=== PATIENT | female | born 1950 | race Caucasian/White ===

== ENCOUNTER → 2018-05-21 08:14 | Outpatient (CLI) | payer MEDICARE, OTHER, SELFPAY ==
[2018-05-21 06:54] VITALS: BMI 28.3
--- OUTSIDE RECORDS SUMMARY | 2018-08-22 08:55 | XMS RPT_ITS ---
:1950 Author Organization OHIP Care Team Providers Name Role Phone DAINA GEIGER Attending DAINA Dougherty Referring Unavailable DAINA GEIGER Referring Unavailable DAINA GEIGER Attending Unavailable DAINA GEIGER Referring Unavailable DAINA GEIGER Referring Unavailable DAINA GEIGER Attending Unavailable DAINA GEIGER Referring Unavailable ANU SHANE (PT) Attending Unavailable DAINA GEIGER Referring Unavailable ANU SHANE (PT) Attending Unavailable DAINA GEIGER Referring Unavailable ANU SHANE (PT) Attending Unavailable DAINA GEIGER Referring Unavailable ANU SHANE (PT) Attending Unavailable DAINA GEIGER Referring Unavailable DAINA GEIGER Attending Unavailable DAINA GEIGER Referring Unavailable DAIAN GEIGER Referring Unavailable JAMES WONG (COMMERCIAL DRIVER) Attending Unavailable Rg Llanes Attending Unavailable Toya Zuleta Referring Unavailable Rg Llanes Attending Unavailable Rg Llanes Referring Unavailable Toya Zuleta Primary Care Unavailable Rg Llanes Attending Unavailable Toya Zuleta Referring Unavailable Toya Zuleta Primary Care Unavailable Gisella Mcfarlane Attending Unavailable Toya Zuleta Referring Unavailable PROBLEMS PROBLEMS DATE TYPE CONDITION / CODE ATTENDING STATUS SOURCE 05/21/2018 Unknown J02.9 - Acute Rg Llanes Active [facility] pharyngitis, Community unspecified / Hospital J02.9(ICD-10) Repository 05/02/2018 Active Encounter for NA Active [facility] screening [place] mammogram for Repository malignant neoplasm of breast / Z12.31(ICD-10) 01/24/2018 Active Unknown / [place], Active [facility] UNK(Unknown) DAINA D [place] Repository 04/17/2017 Active Hyperlipidemia, NA Active [facility] unspecified / [place] E78.5(ICD-10) Repository 01/15/2018 Active Other emt intermediate NA Active [facility] (current) drug [place] therapy / Repository Z79.899(ICD-10) 10/30/2017 Active Encounter for NA Active [facility] screening for [place] malignant Repository neoplasm of colon / Z12.11(ICD-10) PROCEDURES PROCEDURES No Procedure Records FoundRESULTS RESULTS CNOV Observed: 06/17/2018 Status: COMPLETED Source: SPRAY 10:00 AM [facility] REPOSITORY Office Visit (FAMPWS) PAM JERRY ([id number]) 1950 F Date Time Provider Department 06/17/18 10:00 AM JAMES WONG (JASON) FAMPWS During your visit today, we recorded the following information about you: Temperature Pulse Respiration Blood pressure 98.6 degrees 78/minute 16/minute 130/72 Weight 94.2 kg James Wong APRN.CNP 06/17/2018 10:43 AM Signed 06/17/2018 Patient presents with: Wheezing: no cold , just wheezing last few months, states worse when lying down and and worse on exhal SUBJECTIVE: This is a 68 year old that is here today for Above Complaints. Noticed about 2 months ago started wheezing usually on exhalation. Worse when lays down. Patient reports it is wheezing that is coming from her nose area. Has not tried any OTC products. Denies fevers, chills, ear pain, sinus pain, headaches, sore throat, SOB, dyspnea, coughing, chest wheezing, chest pain, or palpitations. Positive for nasal dryness, stuffiness, and nose bleed this Am that stopped easily. 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 DULoxetine (CYMBALTA) 60 mg capsule TAKE ONE CAPSULE BY MOUTH EVERY DAY atorvastatin (LIPITOR) 40 mg tablet TAKE 1 TABLET BY MOUTH ONCE DAILY. Hydrochlorothiazide 12.5 mg capsule Take 1 capsule by mouth once daily. nicotine (NICODERM) 14 mg/24 hr Apply 1 Patch as directed every 24 hours. unsure of dose, #2 No current facility-administered medications for this visit. Medications and allergies reviewed by this provider. SOCIAL HISTORY Social History Marital status: Spouse name: Montrell Years of education: Number of children: 1 Social History Main Topics Smoking status: Former Smoker Packs/day: 0.25 Years: 15.00 Types: Cigarettes Quit date: 07/15/1993 Smokeless tobacco: Former User Quit date: 2017 Alcohol use: Yes 1.5 oz/week Cans of Beer (12oz): 1 per week Drug use: No REVIEW OF SYSTEMS All other reviewed and negative other than HPI. OBJECTIVE: BP 130/72 (BP Site: Left Arm, BP Position: Sitting, BP Cuff Size: Large Adult) Pulse 78 Temp 37 ?C (98.6 ?F) Resp 16 Wt 94.2 kg (207 lb 9.6 oz) SpO2 95% BMI 35.63 kg/m? . Vital signs reviewed by this provider. APPEARANCE Well appearing, alert, in no acute distress, well- hydrated, well nourished. and Overweight EARS External ears normal, canals clear NOSE/SINUS negative findings: septum midline with no perforation or bleeding, positive findings: mucosa erythematous and swollen, clear rhinorrhea THROAT normal, no erythema NECK Supple, no adenopathy; thyroid symmetric, normal size, HEART RRR with normal S1 and S2, no murmurs, no gallops, no JVD appreciated LUNG clear to auscultation. No wheezes, rhonchi, or rales ASSESSMENT/PLAN: 1. Nasal congestion - ICD9: 478.19, ICD10: R09.81 - possibly related to nasal mucosal swelling - will trial steroid nasal spray- instructed to rinse mouth after usage - also to use saline nasal spray to keep nares moist - add humidification to house - FLUTICASONE 50 MCG/ACTUATION NASAL SPRAY,SUSPENSION - follow-up with PCP as scheduled James ChapalogIVANIA smith.COMMERCIAL DRIVER Prescription instructions reviewed with patient as applicable. Patient advised if symptoms do not improve or if symptoms worsen sooner, to contact their primary care physician. Potential red flag symptoms discussed with the patient. Reviewed appropriate action plan to take if red flag symptoms occur. Patient agreeable to treatment plan. James Wong APRN.CNP 06/17/2018 10:19 AM Signed Saline nasal spray as needed cool mist humidifier Referring Provider: SELF [200] Allergies As of Date: 06/17/2018 Noted Allergy Reaction CATS 03/20/2005 5 - Intolerance Comments: ITCHY WATERY EYES AND SUCH NAPROSYN (NAPROXEN) 03/20/2005 7 - Swelling TRAMADOL 08/22/2009 8 - GI Upset VICODIN (HYDROCODONE-ACETAMINOPHE*03/28/2005 8 - GI Upset Date Reviewed: 06/17/2018 Reviewed by: Hailey Da Silva (Xena) XENA Jon - Fully Assessed Reason for Visit: Wheezing [181] Cmt: no cold , just wheezing last few months, states worse when lying down and and worse on exhal Primary Visit Diagnosis:Nasal congestion [R09.81] Order(s):fluticasone (FLONASE) 50 mcg/actuation nasal sprayUse 2 Sprays in each nostril once daily. Rinse mouth after use.Disp: 1 BottleRfl: 11 Prescriptions as of 06/17/2018 Sig: LORAZEPAM 0.5 MG TABLET Take one tablet three time da* DULOXETINE 60 MG CAPSULE,SUSIE* TAKE ONE CAPSULE BY MOUTH SOHAIL* ATORVASTATIN 40 MG TABLET TAKE 1 TABLET BY MOUTH ONCE D* HYDROCHLOROTHIAZIDE 12.5 MG C* Take 1 capsule by mouth once * NICOTINE 14 MG/24 HR DAILY TR* Apply 1 Patch as directed sohail* FLUTICASONE 50 MCG/ACTUATION * Use 2 Sprays in each nostril * Problem List As Of Date 06/17/2018 Noted Resolved CHOLECYSTITIS SEE ALSO GALLBLADDER CHRONIC [K*INVALID FOR* Swelling, mass, or lump in chest [R22.2] INVALID FOR*04/17/2017 Unspecified Myalgia and Myositis [NIQ7175] S/P splenectomy [Z90.81] INVALID FOR* Fibromyalgia [M79.7] INVALID FOR* Hyperlipidemia [E78.5] INVALID FOR* Anxiety [F41.9] INVALID FOR* Cervical pain [M54.2] INVALID FOR* Other instructions from your clinician: Saline nasal spray as needed cool mist humidifier Prescriptions ordered this encounter Disp Refills Start End FLUTICASONE 50 MCG/ACTUATION NASAL S* 1 Murali* 11 06/17/2018 Route: EACH NOSTRIL Sig: Use 2 Sprays in each nostril once daily. Rinse mouth after use. Follow-up and Disposition History Recorded Encounter Status:Closed by PODLOGARJAMES CNP on 06/17/18 PROGRESS Observed: 06/17/2018 Status: COMPLETED Source: SPRAY 9:59 AM [facility] REPOSITORY O ID: [id number] Author: James Pro) Podlogar Service: (none) Author Type: Nurse Practitioner Type: Progress Notes Filed: 06/17/2018 10:43 AM Note Text: 06/17/2018 Patient presents with: Wheezing: no cold , just wheezing last few months, states worse when lying down and and worse on exhal SUBJECTIVE: This is a 68 year old that is here today for Above Complaints. Noticed about 2 months ago started wheezing usually on exhalation. Worse when lays down. Patient reports it is wheezing that is coming from her nose area. Has not tried any OTC products. Denies fevers, chills, ear pain, sinus pain, headaches, sore throat, SOB, dyspnea, coughing, chest wheezing, chest pain, or palpitations. Positive for nasal dryness, stuffiness, and nose bleed this Am that stopped easily. 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 DULoxetine (CYMBALTA) 60 mg capsule TAKE ONE CAPSULE BY MOUTH EVERY DAY atorvastatin (LIPITOR) 40 mg tablet TAKE 1 TABLET BY MOUTH ONCE DAILY. Hydrochlorothiazide 12.5 mg capsule Take 1 capsule by mouth once daily. nicotine (NICODERM) 14 mg/24 hr Apply 1 Patch as directed every 24 hours. unsure of dose, #2 No current facility-administered medications for this visit. Medications and allergies reviewed by this provider. SOCIAL HISTORY Social History Marital status: Spouse name: Montrell Years of education: Number of children: 1 Social History Main Topics Smoking status: Former Smoker Packs/day: 0.25 Years: 15.00 Types: Cigarettes Quit date: 07/15/1993 Smokeless tobacco: Former User Quit date: 2017 Alcohol use: Yes 1.5 oz/week Cans of Beer (12oz): 1 per week Drug use: No REVIEW OF SYSTEMS All other reviewed and negative other than HPI. OBJECTIVE: BP 130/72 (BP Site: Left Arm, BP Position: Sitting, BP Cuff Size: Large Adult) Pulse 78 Temp 37 ?C (98.6 ?F) Resp 16 Wt 94.2 kg (207 lb 9.6 oz) SpO2 95% BMI 35.63 kg/m? . Vital signs reviewed by this provider. APPEARANCE Well appearing, alert, in no acute distress, well-hydrated, well nourished. and Overweight EARS External ears normal, canals clear NOSE/SINUS negative findings: septum midline with no perforation or bleeding, positive findings: mucosa erythematous and swollen, clear rhinorrhea THROAT normal, no erythema NECK Supple, no adenopathy; thyroid symmetric, normal size, HEART RRR with normal S1 and S2, no murmurs, no gallops, no JVD appreciated LUNG clear to auscultation. No wheezes, rhonchi, or rales ASSESSMENT/PLAN: 1. Nasal congestion - ICD9: 478.19, ICD10: R09.81 - possibly related to nasal mucosal swelling - will trial steroid nasal spray- instructed to rinse mouth after usage - also to use saline nasal spray to keep nares moist - add humidification to house - FLUTICASONE 50 MCG/ACTUATION NASAL SPRAY,SUSPENSION - follow-up with PCP as scheduled James Wong, IVANIA.COMMERCIAL DRIVER Prescription instructions reviewed with patient as applicable. Patient advised if symptoms do not improve or if symptoms worsen sooner, to contact their primary care physician. Potential red flag symptoms discussed with the patient. Reviewed appropriate action plan to take if red flag symptoms occur. Patient agreeable to treatment plan. Observed: 05/21/2018 Status: F Source: MARILYN CULTURE, R/O STREP A 9:07 AM [facility] REPOSITORY SHELLI Culture No Streptococcus group A isolated. * This cultures intended use is to screen for Beta Streptococcus A only. All other pathogens and potential pathogens will not be screened for or reported. If a complete workup of all potential pathogens is indicated an order for a routine throat culture is required. Performed By: #### M100.010 #### [facility] [address] [place], [place], [address] URGENT CARE VISIT Observed: 05/21/2018 Status: F Source: MARILYN REPORT 7:11 AM [facility] REPOSITORY [facility] [address] [place] [address] [address] [place] [address] OFFICE VISIT Date of Service: 05/21/18 MR#: [id number] Acct: [id number] Name: PAM JERRY Rep #: [id number] : 1950 Provider: Rg STONE Age/Sex: 68/F Location: [facility] Status: Signed Intake Vital Signs05/21/18 Height 5 ft 4 in Intake Visit Reasons: sore throat, ear aches Chief Complaint: Sore throat, earache Permastone Mechanic Required: No Accompanied by: Self Is patient in pain?: No Allergies No Known Allergies Allergy (Unverified 05/21/18 06:55) Medications cyclobenzaprine 5 mg tablet 5 mg PO TID 11/25/17 [History Confirmed 12/01/17] duloxetine 20 mg capsule,delayed release 20 mg PO BID 11/25/17 [History Confirmed 12/01/17] lorazepam 0.5 mg tablet PO 30 Days #90 11/25/17 [History Confirmed 12/01/17] prednisone 50 mg tablet 50 mg PO QDAY #5 tab 11/25/17 [Rx Confirmed 12/01/17] [facility] Medical History History of hysterectomy (Acute) Surgical History History of appendectomy (Acute) History of cholecystectomy (Acute) removal of spleen (Acute) Social History Smoking Status: Never smoker alcohol intake: never HPI HPI Chief Complaint: Sore throat, earache Details: PAM JERRY, is a 68 F who presents to the office today for initial evaluation approximately 2-1/2 to 3-week history of persistent bilateral earache and sore throat. She has no complaints of congestion, postnasal drip, fever, chills, sweats, rash, cough, chest pain/shortness of breath. She is a non-smoker, noting no other members in household with similar complaints. She has taken no [id number] products to assist with her symptoms. She notes no other associated symptoms and no other alleviating or aggravating factors. ROS Const Constitutional: No other (ROS negative x10 other than as noted above) Exam Const General: cooperative, healthy appearing, no acute distress, comfortable Nutritional Appearance: average body habitus Orientation: alert, awake, oriented x3 HENSC Head: normal to inspection Ears: hearing grossly normal bilaterally, external ears normal, TM's normal bilaterally, EAC's normal Nose: external nose normal, nares normal, septum normal, nasal discharge clear bilaterally (Trace amount) Face and sinus: normal facial exam, sinuses nontender, face symmetric Mouth: tongue normal, lip normal, oral mucosae normal Teeth and gingiva: gingiva normal, dentition normal Throat: uvula midline, posterior oropharynx normal, no postnasal drainage, abnormal tonsil bilaterally erythema (Trace; rapid strep test today negative) Eyes General: appearance normal, both eyes and all related structures Neck Neck: normal visual inspection, full ROM, no lymphadenopathy, no meningeal signs, supple Neck mass: No Thyroid: thyroid normal Lymphatic: no lymphadenopathy noted Chest Chest palpation AND inspection: normal inspection of the chest Resp Effort AND Inspection: normal respiratory effort, able to speak in complete sentences, symmetric chest movement, no cough Auscultation: Bilateral: Clear to Auscultation Cardio Palpation: normal PMI Rate: regular rate Rhythm: regular rhythm Heart Sounds: S1 normal, S2 normal, no gallops, no murmurs, no rubs Pulses: radial pulses present GI Inspection: normal to inspection Skin General: no rashes or lesions noted Neuro General: alert, awake, oriented x3, gait normal Cognition: normal cognition Speech: speech normal Gait: normal gait Motor: muscle tone normal throughout Sensory Exam: no sensory deficits noted Psych Appearance: grossly normal Mental Status: mental status grossly normal Mood: congruent mood Affect: normal affect Speech and Movement: speech and movement normal Attitude: cooperative Thought Process: normal Thought Content: normal Judgment: judgment good Results BMSRAPIDSTRECO Office Rapid Strep A Negative Last Edit by Mary Jane Blood on 05/21/18 06:56 Assessment AND Plan Problems 1. URI (upper respiratory infection) J06.9 2. Pharyngitis J02.9 Plan Patient aware today's rapid strep test was negative therefore culture sent to lab for further evaluation. Clear fluids, rest, Tylenol, saltwater gargles, change toothbrush as instructed today. Follow-up with PCP in 5-7 days should symptoms not improved, sooner should symptoms worsen or any other concerns develop. Patient states acknowledging understanding all the above. This note was generated with Dragon dictation software. It may contain incorrect words, spelling, and punctuation that were not noted in checking the note before signing. Orders Orders: Coding Level of Care Code Off vis,est,level 3 Diagnoses URI (upper respiratory infection) J06.9 Pharyngitis J02.9 05/21/18 0711 <Electronically signed by Rg STONE> Date Rg STONE Cosigner Signature: Date (if applicable) CC: CNCO Observed: 05/02/2018 Status: COMPLETED Source: SPRAY 12:37 PM [facility] REPOSITORY HNO ID: [id number] Author: Mammography Coordinator Service: (none) Author Type: Physician Type: Letter Filed: 05/05/2018 11:33 PM Note Text: May 02, 2018 PID: [id number] [place] [address] Dear Ms. Jerry, We are pleased to inform you that the results of your recent breast imaging exam on 05/02/2018 are normal. Early detection of cancer is very important. We also understand recommendations regarding breast cancer screening are controversial. Please discuss with your primary care provider which strategy is best for you and whether a mammogram is right for you. Your imaging studies and report will be kept on file at [facility] as part of your permanent medical record and are available for your continuing care. Thank you for allowing us to help in meeting your health care needs. Sincerely, Dr. Heck Interpreting Radiologist [facility] (Normal over 40) [facility] SCREENING Observed: 05/02/2018 Status: F Source: SPRAY 10:29 AM [facility] [place] REPOSITORY * * *Final Report* * * DATE OF EXAM: May 02 2018 10:29AM KELLIE 0581 - [facility] SCREENING / PROCEDURE REASON: Encounter for screening mammogram for malignant neoplasm of breast * * * * Physician Interpretation * * * * RESULT: #[id number] - [facility] SCREENING BILATERAL DIGITAL SCREENING MAMMOGRAM WITH CAD: 05/02/2018 HISTORY: Encounter For Screening Mammogram For Malignant Neoplasm Of Breast /priors available for comparison. RESULT: TECHNIQUE: The study was acquired using full field digital technology and interpreted from soft copy. Current study was also evaluated with a Computer Aided Detection (CAD). Comparison is made to exams dated: 02/27/2017 mammogram - [facility] and 09/15/2014 mammogram. There are scattered fibroglandular elements in both breasts. No significant masses, calcifications, or other findings are seen in either breast. There has been no significant interval change. IMPRESSION: There is no mammographic evidence of malignancy. A 1 year screening mammogram is recommended. Swetha malloy/latonia:05/02/2018 12:37:26 Health Information Technician(s): RT Rosie(R)(M), [facility] letter sent: Normal over 40 Mammogram BI-RADS: 1 Negative Multiple national specialty organizations have released breast cancer screening guidelines for women at average risk for developing breast cancer - guidelines that are based on both evidence and opinion, yet differ on when to start and how often to screen for breast cancer. With representation from Breast Imaging, Internal Medicine, Women's Health, Family Medicine, and Medical/Surgical Oncology, the [facility] has carefully reviewed the data and reached the following consensus: 1) All women should engage in shared decision-making with their providers to decide when to start and how often to screen; 2) All women should have the opportunity to start screening mammography at age 40; 3) For women ages 45-55, we recommend annual screening mammograms; 4) For women ages 55 and over, we support both the transition from an annual to a biennial interval if this aligns more with patient's values and preferences, or continuation with annual screening; 5) All women should discuss with their providers when to stop screening mammograms. Network Support Engineer: Latonia Transcribe Date/Time: May 02 2018 10:18A Dictated by: SWETHA HECK MD This examination was interpreted and the report reviewed and electronically signed by: SWETHA HECK MD on May 02 2018 12:37PM EST [id number] PROCEDURE Observed: 05/02/2018 Status: COMPLETED Source: SPRAY 10:17 AM [facility] REPOSITORY HNO ID: [id number] Author: Susanne () Austin Pena Service: (none) Author Type: Fmd Teacher Type: Procedures Filed: 05/02/2018 10:30 AM Note Text: Radiology Service Progress Note PATIENT NAME: Pam Jerry DATE OF SERVICE: May 02, 2018 TIME: 10:17 AM PATIENT IDENTITY VERIFICATION COMPLETED USING TWO (2) METHODS: Patient confirmed name verbally and Date of . PATIENT GENDER DATA: Female. status: : No status: NO. PATIENT RELEVANT IMPLANT DATA REVIEWED: Not Applicable RADIOLOGY DEPARTMENT: [facility] DATA: Not applicable SIGNED BY: RT Rosie May 02, 2018 10:17 AM PROGRESS Observed: 05/01/2018 Status: COMPLETED Source: SPRAY 10:46 AM [facility] REPOSITORY HNO ID: [id number] Author: Daina Geiger Service: (none) Author Type: Physician Type: Progress Notes Filed: 05/02/2018 7:18 PM Note Text: Chief Complaint Patient presents with: F/U 3 Month: Fibro, Cervical pain and Anxiety HPI Pam Jerry is a 68 year old female who presents here today for a 3 mo f/u. Here today for a 3 mo f/u. Overall doing well, not really much going on. Doesn't like the winter, previously lived in [place] for 8 years. Smoking - Still not smoking but uses that patches. Fibro - Overall stable but still having daily pain. Worse in the colder months, raining or when damp out. Most of her pain is located in her neck and shoulders. Currently taking Cymbalta 60 mg 1 tab po once daily and does have improvement with pain with using Ativan 0.5 mg 1 tab po TID. Uses heat to help symptoms. Cervical pain - Improved since last OV. Did complete 4 PT sessions with Anu. Had dry needling done during this time which hurt but did get rid of one of the knots. After 4 sessions, she felt temporarily relief the day of PT and then pain would return. Was given home exercises to complete. Anxiety - Stable with current regimen of medication. Currently taking Ativan 0.5 mg 1 tab po TID. Virus - Ongoing for the last 3-5 days with a sore throat, head congestion and feeling blah and body soreness. Edema - Improved with use of HCTZ 12.5 mg once daily to reduce swelling. Good results with use of medication. Past medical history, appointments, medications, allergies reviewed. 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 - Hypercholesterolemia 2014 - Impaired fasting glucose 2014 - Insomnia - Kidney stone - Liver function test abnormality - Multiple nodules of lung All less than 5 mm in size, diagnosed November 2015, suggested 3 month follow-up imaging - Myalgia and myositis, unspecified - Osteopenia - Primary fibromyalgia syndrome - Tobacco dependence - Tubal without intrauterine Previous Surgical History PAST SURGICAL HISTORY Procedure Laterality Date - APPENDECTOMY 1961 - LAP CHOLECYSTECT/CHOLANGIOGRAPHY 04/11/05 - LIGATE FALLOPIAN TUBE TUBAL - REMOVAL SPLEEN, TOTAL 1961 - TOTAL ABDOM HYSTERECTOMY 1998 Family History FAMILY HISTORY Problem Relation Age of Onset - Cancer Mother LUNG - Heart Mother - Heart Maternal Grandfather Patient Allergies ALLERGIES Allergen Reactions - Cats Intolerance ITCHY WATERY EYES AND SUCH - Naprosyn [Naproxen] Swelling - Tramadol GI Upset - Vicodin [Hydrocodon* GI Upset Current Medications Current Outpatient Prescriptions on File Prior to Visit: DULoxetine (CYMBALTA) 60 mg capsule TAKE ONE CAPSULE BY MOUTH EVERY DAY atorvastatin (LIPITOR) 40 mg tablet TAKE 1 TABLET BY MOUTH ONCE DAILY. LORazepam (ATIVAN) 0.5 mg tab Take one tablet three time daily as needed. Hydrochlorothiazide 12.5 mg capsule Take 1 capsule by mouth once daily. nicotine (NICODERM) 14 mg/24 hr Apply 1 Patch as directed every 24 hours. unsure of dose, #2 No current facility-administered medications on file prior to visit. Social History Social History Marital status: Spouse name: Montrell Years of education: Number of children: 1 Social History Main Topics Smoking status: Former Smoker Packs/day: 0.25 Years: 15.00 Types: Cigarettes Quit date: 07/15/1993 Smokeless tobacco: Former User Quit date: 2017 Alcohol use: Yes 1.5 oz/week Cans of Beer (12oz): 1 per week Drug use: No EXAM: BP 128/86 (BP Site: Left Arm, BP Position: Sitting, BP Cuff Size: Regular Adult) Pulse 80 Resp 16 Wt 91.3 kg (201 lb 3.2 oz) BMI 34.54 kg/m? General Appearance: Well appearing, alert, in no acute distress, well-hydrated, well nourished and Overweight. Oropharynx: Lips, mucosa, and tongue normal, teeth and gums normal, oropharynx normal. Neck: Supple, no adenopathy; thyroid symmetric, normal size, no bruits. Lungs: lungs clear to auscultation. No wheezing, rhonchi, rales. Heart: RRR without murmur, gallop, or rubs. No ectopy. Health Maintenance List HEPATITIS C SCREENING due on 1996 DTAP,TDAP,TD(2 - Tdap) due on 11/01/2012 MAMMOGRAM due on 02/27/2018 PNEUMOVAX AGE 65 AND OVER WITH 5YR LOOKBACK(1) due on 06/14/2018 FECAL OCCULT BLOOD due on 10/30/2018 DIABETES SCREEN due on 01/15/2021 LIPID SCREEN due on 01/15/2023 BONE DENSITY Completed ADULT PREVNAR-13 Completed INFLUENZA Completed Data reviewed No current labs completed ASSESSMENT/PLAN: 1. Anxiety - ICD9: 300.00, ICD10: F41.9 (primary diagnosis) - Continue current medication regimen. - LORAZEPAM 0.5 MG TABLET 2. Fibromyalgia - ICD9: 729.1, ICD10: M79.7 - Continue current medication regimen. 3. Hyperlipidemia, unspecified hyperlipidemia type - ICD9: 272.4, ICD10: E78.5 - good control - Continue current medication. 4. Cervical pain - ICD9: 723.1, ICD10: M54.2 - Stable - Continue current medication regimen. 5. Encounter for screening mammogram for malignant neoplasm of breast - ICD9: V76.12, ICD10: Z12.31 - Setup an appt. 6. Viral URI Symptomatic treatment 3 mo f/u I agree with the Chief Complaint, ROS, and Past Histories independently gathered by the clinical application support developer and the remaining scribed note accurately describes my personal service to the patient. Daina Geiger MD The documentation for this note was completed by Mia Pittman Ma acting as scribe for Daina Geiger MD. May 01, 2018 10:47 AM. CNOV Observed: 05/01/2018 Status: COMPLETED Source: SPRAY 10:40 AM [facility] REPOSITORY Office Visit (FAMPWS) PAM JERRY ([id number]) 1950 F Date Time Provider Department 05/01/18 10:40 AM [facility] During your visit today, we recorded the following information about you: Pulse Respiration Blood pressure Weight 80/minute 16/minute 128/86 91.3 kg Daina Geiger MD 05/02/2018 7:18 PM Signed Chief Complaint Patient presents with: F/U 3 Month: Fibro, Cervical pain and Anxiety HPI Pam Jerry is a 68 year old female who presents here today for a 3 mo f/u. Here today for a 3 mo f/u. Overall doing well, not really much going on. Doesn't like the winter, previously lived in [place] for 8 years. Smoking - Still not smoking but uses that patches. Fibro - Overall stable but still having daily pain. Worse in the colder months, raining or when damp out. Most of her pain is located in her neck and shoulders. Currently taking Cymbalta 60 mg 1 tab po once daily and does have improvement with pain with using Ativan 0.5 mg 1 tab po TID. Uses heat to help symptoms. Cervical pain - Improved since last OV. Did complete 4 PT sessions with Anu. Had dry needling done during this time which hurt but did get rid of one of the knots. After 4 sessions, she felt temporarily relief the day of PT and then pain would return. Was given home exercises to complete. Anxiety - Stable with current regimen of medication. Currently taking Ativan 0.5 mg 1 tab po TID. Virus - Ongoing for the last 3-5 days with a sore throat, head congestion and feeling blah and body soreness. Edema - Improved with use of HCTZ 12.5 mg once daily to reduce swelling. Good results with use of medication. Past medical history, appointments, medications, allergies reviewed. 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 - Hypercholesterolemia 2014 - Impaired fasting glucose 2014 - Insomnia - Kidney stone - Liver function test abnormality - Multiple nodules of lung All less than 5 mm in size, diagnosed November 2015, suggested 3 month follow-up imaging - Myalgia and myositis, unspecified - Osteopenia - Primary fibromyalgia syndrome - Tobacco dependence - Tubal without intrauterine Previous Surgical History PAST SURGICAL HISTORY Procedure Laterality Date - APPENDECTOMY 1961 - LAP CHOLECYSTECT/CHOLANGIOGRAPHY 04/11/05 - LIGATE FALLOPIAN TUBE TUBAL - REMOVAL SPLEEN, TOTAL 1961 - TOTAL ABDOM HYSTERECTOMY 1998 Family History FAMILY HISTORY Problem Relation Age of Onset - Cancer Mother LUNG - Heart Mother - Heart Maternal Grandfather Patient Allergies ALLERGIES Allergen Reactions - Cats Intolerance ITCHY WATERY EYES AND SUCH - Naprosyn [Naproxen] Swelling - Tramadol GI Upset - Vicodin [Hydrocodon* GI Upset Current Medications Current Outpatient Prescriptions on File Prior to Visit: DULoxetine (CYMBALTA) 60 mg capsule TAKE ONE CAPSULE BY MOUTH EVERY DAY atorvastatin (LIPITOR) 40 mg tablet TAKE 1 TABLET BY MOUTH ONCE DAILY. LORazepam (ATIVAN) 0.5 mg tab Take one tablet three time daily as needed. Hydrochlorothiazide 12.5 mg capsule Take 1 capsule by mouth once daily. nicotine (NICODERM) 14 mg/24 hr Apply 1 Patch as directed every 24 hours. unsure of dose, #2 No current facility-administered medications on file prior to visit. Social History Social History Marital status: Spouse name: Montrell Years of education: Number of children: 1 Social History Main Topics Smoking status: Former Smoker Packs/day: 0.25 Years: 15.00 Types: Cigarettes Quit date: 07/15/1993 Smokeless tobacco: Former User Quit date: 2017 Alcohol use: Yes 1.5 oz/week Cans of Beer (12oz): 1 per week Drug use: No EXAM: BP 128/86 (BP Site: Left Arm, BP Position: Sitting, BP Cuff Size: Regular Adult) Pulse 80 Resp 16 Wt 91.3 kg (201 lb 3.2 oz) BMI 34.54 kg/m? General Appearance: Well appearing, alert, in no acute distress, well-hydrated, well nourished and Overweight. Oropharynx: Lips, mucosa, and tongue normal, teeth and gums normal, oropharynx normal. Neck: Supple, no adenopathy; thyroid symmetric, normal size, no bruits. Lungs: lungs clear to auscultation. No wheezing, rhonchi, rales. Heart: RRR without murmur, gallop, or rubs. No ectopy. Health Maintenance List HEPATITIS C SCREENING due on 1996 DTAP,TDAP,TD(2 - Tdap) due on 11/01/2012 MAMMOGRAM due on 02/27/2018 PNEUMOVAX AGE 65 AND OVER WITH 5YR LOOKBACK(1) due on 06/14/2018 FECAL OCCULT BLOOD due on 10/30/2018 DIABETES SCREEN due on 01/15/2021 LIPID SCREEN due on 01/15/2023 BONE DENSITY Completed ADULT PREVNAR-13 Completed INFLUENZA Completed Data reviewed No current labs completed ASSESSMENT/PLAN: 1. Anxiety - ICD9: 300.00, ICD10: F41.9 (primary diagnosis) - Continue current medication regimen. - LORAZEPAM 0.5 MG TABLET 2. Fibromyalgia - ICD9: 729.1, ICD10: M79.7 - Continue current medication regimen. 3. Hyperlipidemia, unspecified hyperlipidemia type - ICD9: 272.4, ICD10: E78.5 - good control - Continue current medication. 4. Cervical pain - ICD9: 723.1, ICD10: M54.2 - Stable - Continue current medication regimen. 5. Encounter for screening mammogram for malignant neoplasm of breast - ICD9: V76.12, ICD10: Z12.31 - Setup an appt. 6. Viral URI Symptomatic treatment 3 mo f/u I agree with the Chief Complaint, ROS, and Past Histories independently gathered by the clinical application support developer and the remaining scribed note accurately describes my personal service to the patient. Daina Geiger MD The documentation for this note was completed by Mia Pittman Ma acting as scribe for Daina Geiger MD. May 01, 2018 10:47 AM. Referring Provider: DAINA GEIGER [[id number]] Allergies As of Date: 05/01/2018 Noted Allergy Reaction CATS 03/20/2005 5 - Intolerance Comments: ITCHY WATERY EYES AND SUCH NAPROSYN (NAPROXEN) 03/20/2005 7 - Swelling TRAMADOL 08/22/2009 8 - GI Upset VICODIN (HYDROCODONE-ACETAMINOPHE*03/28/2005 8 - GI Upset Date Reviewed: 05/01/2018 Reviewed by: Mia Pittman Ma - Fully Assessed Reason for Visit: F/U 3 Month [443] Cmt: Fibro, Cervical pain and Anxiety Primary Visit Diagnosis:Anxiety [F41.9] Other Visit Diagnoses:Fibromyalgia [M79.7] Hyperlipidemia, unspecified hyperlipidemia type [E78.5] Cervical pain [M54.2] Viral URI [J06.9] Encounter for screening mammogram for malignant neoplasm of breast [Z12.31] Order(s):LORazepam (ATIVAN) 0.5 mg tabTake one tablet three time daily as needed.Disp: 90 tabletRfl: 2 [facility] SCREENING [[id number]] Order #: [id number] FUTURE Prescriptions as of 05/01/2018 Sig: LORAZEPAM 0.5 MG TABLET Take one tablet three time da* DULOXETINE 60 MG CAPSULE,SUSIE* TAKE ONE CAPSULE BY MOUTH SOHAIL* ATORVASTATIN 40 MG TABLET TAKE 1 TABLET BY MOUTH ONCE D* HYDROCHLOROTHIAZIDE 12.5 MG C* Take 1 capsule by mouth once * NICOTINE 14 MG/24 HR DAILY TR* Apply 1 Patch as directed sohail* Problem List As Of Date 05/01/2018 Noted Resolved CHOLECYSTITIS SEE ALSO GALLBLADDER CHRONIC [K*INVALID FOR* Swelling, mass, or lump in chest [R22.2] INVALID FOR*04/17/2017 Unspecified Myalgia and Myositis [[id number]] S/P splenectomy [Z90.81] INVALID FOR* Fibromyalgia [M79.7] INVALID FOR* Hyperlipidemia [E78.5] INVALID FOR* Anxiety [F41.9] INVALID FOR* Cervical pain [M54.2] INVALID FOR* Prescriptions ordered this encounter Disp Refills Start End LORAZEPAM 0.5 MG TABLET 90 t* 2 05/01/2018 08/06/2018 Class: Print RX Sig: Take one tablet three time daily as needed. Medications Discontinued During This Encounter LORazepam (ATIVAN) 0.5 mg tab 90 t* 2 01/24/2018 05/01/2018 Class: Print RX Sig: Take one tablet three time daily as needed. Disc: Reason for discontinue is not on file. Disposition: Return in about 3 months (around 07/31/2018). Follow-up and Disposition History Recorded Encounter Status:Closed by DAINA GEIGER MD on 05/02/18 PROGRESS Observed: 03/08/2018 Status: COMPLETED Source: SPRAY 11:24 PM [facility] [place] REPOSITORY O ID: [id number] Author: Anu (Pt) Acosta Service: (none) Author Type: Physical Therapist Type: Progress Notes Filed: 03/09/2018 12:11 AM Note Text: Episode Visit Count: 4 Therapist That Will Oversee The Plan Of Care: Anu Shane Start of Care Date: 02/05/18 Onset Date: 02/06/08 Plan of Care Certification Date: 02/05/18 [facility]ATION [facility]ORTS [facility]ERAPY PHYSICAL THERAPY PROGRESS REPORT PLAN OF CARE UPDATE: Assessment: Pam Jerry exhibits improvements in neck pain, driving tolerance, and overall activity tolerance since beginning therapy. . She continues to be limited with heavy exertion, lifting and physical activities. She is progressing as expected towards her therapy goals as demonstrated by: pain levels and documented subjective information on progress. She will benefit from continued skilled therapy requiring continued manual techniques per patient tolerance and progressive exerices in order to improve remaining functional deficits and return to prior level of function. Functional gains: Improved sleep Increased endurance / activity tolerance Increased independence with HEP Increased ROM Improved affect during session Decreased intensity of pain Decreased frequency of pain Goals for Episode of Care: created on 02/05/18 through 04/07/18 Independent in a Home Exercise Program. Met Patient will decrease pain rating by 2 points to meet minimal clinical important difference for numeric pain rating scale. Met Restore pain free cervical ROM to WNL to allow for improved functional mobility and driving tolerance. Partially met Drive with no aggravation of pain/symptoms. Partially met Sit 30 minutes without pain/symptoms to allow for improved tolerance for sitting ADLs and driving partially met G CODE REPORTING Based on clinical assessment and the score on the AM-PAC Scale Score Assessment Tool, the G code and corresponding severity modifiers are documented below. Evaluation: 02/05/2018 Current Status: Changing AND Maintaining Body Position: G8981 CH 0% impaired Goal Status: Changing AND Maintaining Body Position: G8982 CH 0% impaired Progress Report: 03/05/2018 Current Status: Changing AND Maintaining Body Position: G8981 CH 0% impaired Goal Status: Changing AND Maintaining Body Position: G8982 CH 0% impaired Planned Interventions, Frequency, and Duration: , Patient to be seen for SUBJECTIVE: Pt has seen significant improvement in neck tension and pain since beginning therapy. She notes improved tolerance for driving, ADLs, and all general mobilities. Also a decrease in pain and tightness since trying dry needling last session. Pt would like to try to maintain current gains on her own. She feels she is able to do well with current HEP and using heat to decrease pain.. Pain Score: 1/10 Pain Location: Neck Description: Tightness Frequency: Continuous OBJECTIVE MEASURES WITH LEVEL OF FUNCTION: Cervical Spine AROM Cervical Flexion (degrees)?: 50 Degrees Cervical Extension (degrees)?: 40 Degrees Cervical Side-Bend Right (degrees): 28 Degrees Cervical Side-Bend Left (degrees)?: 29 Degrees Cervical Rotation Right (degrees)?: 60 Degrees Cervical Rotation Left (degrees)?: 65 Thoracic Spine AROM Thoracic Flexion: Normal Thoracic Extension: Minimal limitation Thoracic Sidebend Right: Normal Thoracic Sidebend Left: Normal Thoracic Rotation Right: Normal Thoracic Rotation Left: Normal UE and Cervical Strength Deep Neck Flexor Endurance: 15 sec R UE Strength: 5/5 L UE Strength: 5/5 TREATMENT: Manual Therapy: 1: STM to B upper traps, SCM, suboccipitals, and levator; assessing for tenderness, trigger points, tissue quality, and reproduction of pain/symptoms, then pressure to pt tolerance and until symptoms resolve with each spot 2: 1st rib mobs x10 bilaterally 3: Active cervical extension plus manual overpressure on C7 promoting extension x10- pt shown how to perform for HEP Skilled Intervention: Manual skills to improve joint mobility, ROM, and decrease pain. Utilized anatomy knowledge of the therapist, and assessment of patient's response to intervention. Billing: [facility]: Manual Therapy ([id number]): 1:1 time: 24 minutes (2 units: 23-37 mins) Total time: 24 minutes Anu Shane PT CNTHERAPY Observed: 03/05/2018 Status: COMPLETED Source: SPRAY 1:00 PM [facility] REPOSITORY OT/PT/Speech Visit (PTWS) PAM JERRY ([id number]) 1950 F Date Time Provider Department 03/05/18 1:00 PM ANU SHANE (PT) PTWS Date Time Provider Department Center 03/05/2018 1:00 PM [id number], SEAN (PT)PTWS [facility] Reason for Visit: Physical Therapy [503] Primary Visit Diagnosis:Cervical pain [M54.2] Other Visit Diagnosis:Fibromyalgia [M79.7] Allergies As of Date: 03/05/2018 Noted Allergy Reaction CATS 03/20/2005 5 - Intolerance Comments: ITCHY WATERY EYES AND SUCH NAPROSYN (NAPROXEN) 03/20/2005 7 - Swelling TRAMADOL 08/22/2009 8 - GI Upset VICODIN (HYDROCODONE-ACETAMINOPHE*03/28/2005 8 - GI Upset Date Reviewed: 01/24/2018 Reviewed by: Mia Pittman Ma - Fully Assessed Prescriptions as of 03/05/2018 Sig: LORAZEPAM 0.5 MG TABLET Take one tablet three time da* DULOXETINE 60 MG CAPSULE,SUSIE* Take 1 capsule by mouth once * HYDROCHLOROTHIAZIDE 12.5 MG C* Take 1 capsule by mouth once * ATORVASTATIN 40 MG TABLET Take 1 tablet by mouth once d* NICOTINE 14 MG/24 HR DAILY TR* Apply 1 Patch as directed sohail* Progress Notes: Anu Shane, PT 03/09/2018 12:11 AM Signed Episode Visit Count: 4 Therapist That Will Oversee The Plan Of Care: Anu Shane Start of Care Date: 02/05/18 Onset Date: 02/06/08 Plan of Care Certification Date: 02/05/18 REHABILITATION AND SPORTS THERAPY PHYSICAL THERAPY PROGRESS REPORT PLAN OF CARE UPDATE: Assessment: Pam Jerry exhibits improvements in neck pain, driving tolerance, and overall activity tolerance since beginning therapy. . She continues to be limited with heavy exertion, lifting and physical activities. She is progressing as expected towards her therapy goals as demonstrated by: pain levels and documented subjective information on progress. She will benefit from continued skilled therapy requiring continued manual techniques per patient tolerance and progressive exerices in order to improve remaining functional deficits and return to prior level of function. Functional gains: Improved sleep Increased endurance / activity tolerance Increased independence with HEP Increased ROM Improved affect during session Decreased intensity of pain Decreased frequency of pain Goals for Episode of Care: created on 02/05/18 through 04/07/18 Independent in a Home Exercise Program. Met Patient will decrease pain rating by 2 points to meet minimal clinical important difference for numeric pain rating scale. Met Restore pain free cervical ROM to WNL to allow for improved functional mobility and driving tolerance. Partially met Drive with no aggravation of pain/symptoms. Partially met Sit 30 minutes without pain/symptoms to allow for improved tolerance for sitting ADLs and driving partially met G CODE REPORTING Based on clinical assessment and the score on the AM-PAC Scale Score Assessment Tool, the G code and corresponding severity modifiers are documented below. Evaluation: 02/05/2018 Current Status: Changing AND Maintaining Body Position: G8981 CH 0% impaired Goal Status: Changing AND Maintaining Body Position: G8982 CH 0% impaired Progress Report: 03/05/2018 Current Status: Changing AND Maintaining Body Position: G8981 CH 0% impaired Goal Status: Changing AND Maintaining Body Position: G8982 CH 0% impaired Planned Interventions, Frequency, and Duration: , Patient to be seen for SUBJECTIVE: Pt has seen significant improvement in neck tension and pain since beginning therapy. She notes improved tolerance for driving, ADLs, and all general mobilities. Also a decrease in pain and tightness since trying dry needling last session. Pt would like to try to maintain current gains on her own. She feels she is able to do well with current HEP and using heat to decrease pain.. Pain Score: /10 Pain Location: Neck Description: Tightness Frequency: Continuous OBJECTIVE MEASURES WITH LEVEL OF FUNCTION: Cervical Spine AROM Cervical Flexion (degrees)?: 50 Degrees Cervical Extension (degrees)?: 40 Degrees Cervical Side-Bend Right (degrees): 28 Degrees Cervical Side-Bend Left (degrees)?: 29 Degrees Cervical Rotation Right (degrees)?: 60 Degrees Cervical Rotation Left (degrees)?: 65 Thoracic Spine AROM Thoracic Flexion: Normal Thoracic Extension: Minimal limitation Thoracic Sidebend Right: Normal Thoracic Sidebend Left: Normal Thoracic Rotation Right: Normal Thoracic Rotation Left: Normal UE and Cervical Strength Deep Neck Flexor Endurance: 15 sec R UE Strength: 5/5 L UE Strength: 5/5 TREATMENT: Manual Therapy: 1: STM to B upper traps, SCM, suboccipitals, and levator; assessing for tenderness, trigger points, tissue quality, and reproduction of pain/symptoms, then pressure to pt tolerance and until symptoms resolve with each spot 2: 1st rib mobs x10 bilaterally 3: Active cervical extension plus manual overpressure on C7 promoting extension x10- pt shown how to perform for HEP Skilled Intervention: Manual skills to improve joint mobility, ROM, and decrease pain. Utilized anatomy knowledge of the therapist, and assessment of patient's response to intervention. Billing: [facility]: Manual Therapy ([id number]): 1:1 time: 24 minutes (2 units: 23-37 mins) Total time: 24 minutes Anu Shane PT PROGRESS Observed: 02/28/2018 Status: COMPLETED Source: SPRAY 8:48 AM [facility] REPOSITORY HNO ID: [id number] Author: Anu Shane Service: (none) Author Type: Physical Therapist Type: Progress Notes Filed: 02/28/2018 8:51 AM Note Text: Episode Visit Count: 3 Therapist That Will Oversee The Plan Of Care: Anu Shane Start of Care Date: 02/05/18 Onset Date: 02/06/08 Plan of Care Certification Date: 02/05/18 REHABILITATION AND SPORTS THERAPY PHYSICAL THERAPY TREATMENT NOTE ASSESSMENT: Pam Jerry demonstrated good tolerance to dry needling today, with notable improvement in tissue quality and decreased symptoms. Will assess chcf tolerance for intervention as with fibromyalgia patient may have altered serotonin mechanisms. The patient will continue to benefit from continued skilled physical therapy for manual techniques to decrease pain and return to prior level of function. PLAN FOR NEXT VISIT: assess carry over of needling, progress report due. SUBJECTIVE: Pt notes some relief after last session. She had ~ 4 good days, with 1 or 2 bad ones mixed in. she has some stiffness and pain returning this morning, but she thinks she is getting bad again with the big weather changes. Pain Score: 6/10 Pain Location: Neck Description: Burning;Tightness;Aching Frequency: Continuous OBJECTIVE MEASURES WITH LEVEL OF FUNCTION: Tenderness to below noted structure TREATMENT: Manual Therapy: 1: STM to B upper traps, SCM, suboccipitals, and levator; assessing for tenderness, trigger points, tissue quality, and reproduction of pain/symptoms, then pressure to pt tolerance and until symptoms resolve with each spot Dry Needling: (3) 40 mm needles to B upper traps with pistoning and fanning Skilled Intervention: Manual skills to improve joint mobility, ROM, and decrease pain. Utilized anatomy knowledge of the therapist, and assessment of patient's response to intervention. Billing: [facility]: Manual Therapy ([id number]): 1:1 time: 40 minutes (3 units: 38-52 mins) Total time: 40 minutes Anu Shane PT CNTHERAPY Observed: 02/26/2018 Status: COMPLETED Source: SPRAY 1:00 PM [facility] REPOSITORY OT/PT/Speech Visit (PTWS) PAM JERRY ([id number]) 1950 F Date Time Provider Department 02/26/18 1:00 PM ANU SHANE (PT) PTWS Date Time Provider Department Center 02/26/2018 1:00 PM [id number], SEAN (PT)PTWS [facility] Reason for Visit: Physical Therapy [503] Primary Visit Diagnosis:Cervical pain [M54.2] Other Visit Diagnosis:Fibromyalgia [M79.7] Allergies As of Date: 02/26/2018 Noted Allergy Reaction CATS 03/20/2005 5 - Intolerance Comments: ITCHY WATERY EYES AND SUCH NAPROSYN (NAPROXEN) 03/20/2005 7 - Swelling TRAMADOL 08/22/2009 8 - GI Upset VICODIN (HYDROCODONE-ACETAMINOPHE*03/28/2005 8 - GI Upset Date Reviewed: 01/24/2018 Reviewed by: Mia Pittman Ma - Fully Assessed Prescriptions as of 02/26/2018 Sig: LORAZEPAM 0.5 MG TABLET Take one tablet three time da* DULOXETINE 60 MG CAPSULE,SUSIE* Take 1 capsule by mouth once * HYDROCHLOROTHIAZIDE 12.5 MG C* Take 1 capsule by mouth once * ATORVASTATIN 40 MG TABLET Take 1 tablet by mouth once d* NICOTINE 14 MG/24 HR DAILY TR* Apply 1 Patch as directed sohail* Progress Notes: Anu Shane, PT 02/28/2018 8:51 AM Signed Episode Visit Count: 3 Therapist That Will Oversee The Plan Of Care: Anu Shane Start of Care Date: 02/05/18 Onset Date: 02/06/08 Plan of Care Certification Date: 02/05/18 REHABILITATION AND SPORTS THERAPY PHYSICAL THERAPY TREATMENT NOTE ASSESSMENT: Pam Jerry demonstrated good tolerance to dry needling today, with notable improvement in tissue quality and decreased symptoms. Will assess emt intermediate tolerance for intervention as with fibromyalgia patient may have altered serotonin mechanisms. The patient will continue to benefit from continued skilled physical therapy for manual techniques to decrease pain and return to prior level of function. PLAN FOR NEXT VISIT: assess carry over of needling, progress report due. SUBJECTIVE: Pt notes some relief after last session. She had ~ 4 good days, with 1 or 2 bad ones mixed in. she has some stiffness and pain returning this morning, but she thinks she is getting bad again with the big weather changes. Pain Score: 6/10 Pain Location: Neck Description: Burning;Tightness;Aching Frequency: Continuous OBJECTIVE MEASURES WITH LEVEL OF FUNCTION: Tenderness to below noted structure TREATMENT: Manual Therapy: 1: STM to B upper traps, SCM, suboccipitals, and levator; assessing for tenderness, trigger points, tissue quality, and reproduction of pain/symptoms, then pressure to pt tolerance and until symptoms resolve with each spot Dry Needling: (3) 40 mm needles to B upper traps with pistoning and fanning Skilled Intervention: Manual skills to improve joint mobility, ROM, and decrease pain. Utilized anatomy knowledge of the therapist, and assessment of patient's response to intervention. Billing: [facility]: Manual Therapy ([id number]): 1:1 time: 40 minutes (3 units: 38-52 mins) Total time: 40 minutes Anu Shane PT PROGRESS Observed: 02/21/2018 Status: COMPLETED Source: SPRAY 9:40 PM [facility] REPOSITORY HNO ID: [id number] Author: Anu (Pt) Acosta Service: (none) Author Type: Physical Therapist Type: Progress Notes Filed: 02/21/2018 9:45 PM Note Text: Episode Visit Count: 2 Therapist That Will Oversee The Plan Of Care: Anu Shane Start of Care Date: 02/05/18 Onset Date: 02/06/08 Plan of Care Certification Date: 02/05/18 Patient Identified by Name and Date of : Yes REHABILITATION AND SPORTS THERAPY PHYSICAL THERAPY TREATMENT NOTE ASSESSMENT: Pam Jerry demonstrated good tolerance for manual techniques today with decreased pain and tenderness post session. Patient will be appropriate to add gentle stretching/strengthening next session. The patient will continue to benefit from continued skilled physical therapy for manual techniques prn and progression of exercises. PLAN FOR NEXT VISIT: gentle stretching and strengthening to be added. SUBJECTIVE: Pt with no change since first visit. Pain Score: 8/10 Pain Location: Neck Description: Burning;Stabbing;Aching Frequency: Intermittent OBJECTIVE MEASURES WITH LEVEL OF FUNCTION: Tenderness to below noted muscles TREATMENT: Manual Therapy: 1: STM to B upper traps, SCM, suboccipitals, and levator; assessing for tenderness, trigger points, tissue quality, and reproduction of pain/symptoms, then pressure to pt tolerance and until symptoms resolve with each spot 2: Active cervical extension plus manual overpressure on C7 promoting extension x10- pt shown how to perform for HEP Skilled Intervention: Manual skills to improve joint mobility, ROM, and decrease pain. Utilized anatomy knowledge of the therapist, and assessment of patient's response to intervention. Billing: [facility]: Manual Therapy ([id number]): 1:1 time: 40 minutes (3 units: 38-52 mins) Total time: 40 minutes Anu Shane PT CNTHERAPY Observed: 02/19/2018 Status: COMPLETED Source: SPRAY 1:00 PM [facility] [place] REPOSITORY OT/PT/Speech Visit (PTWS) PAM JERRY ([id number]) 1950 F Date Time Provider Department 02/19/18 1:00 PM ANU SHANE (PT) PTWS Date Time Provider Department Center 02/19/2018 1:00 PM [id number], SEAN (PT)PTWS [facility] Reason for Visit: Physical Therapy [503] Primary Visit Diagnosis:Fibromyalgia [M79.7] Other Visit Diagnosis:Cervical pain [M54.2] Allergies As of Date: 02/19/2018 Noted Allergy Reaction CATS 03/20/2005 5 - Intolerance Comments: ITCHY WATERY EYES AND SUCH NAPROSYN (NAPROXEN) 03/20/2005 7 - Swelling TRAMADOL 08/22/2009 8 - GI Upset VICODIN (HYDROCODONE-ACETAMINOPHE*03/28/2005 8 - GI Upset Date Reviewed: 01/24/2018 Reviewed by: Mia Pittman Ma - Fully Assessed Prescriptions as of 02/19/2018 Sig: LORAZEPAM 0.5 MG TABLET Take one tablet three time da* DULOXETINE 60 MG CAPSULE,SUSIE* Take 1 capsule by mouth once * HYDROCHLOROTHIAZIDE 12.5 MG C* Take 1 capsule by mouth once * ATORVASTATIN 40 MG TABLET Take 1 tablet by mouth once d* NICOTINE 14 MG/24 HR DAILY TR* Apply 1 Patch as directed sohail* Progress Notes: Anu Shane PT 02/21/2018 9:45 PM Signed Episode Visit Count: 2 Therapist That Will Oversee The Plan Of Care: Anu Shane Start of Care Date: 02/05/18 Onset Date: 02/06/08 Plan of Care Certification Date: 02/05/18 Patient Identified by Name and Date of : Yes REHABILITATION AND SPORTS THERAPY PHYSICAL THERAPY TREATMENT NOTE ASSESSMENT: Pam Jerry demonstrated good tolerance for manual techniques today with decreased pain and tenderness post session. Patient will be appropriate to add gentle stretching/strengthening next session. The patient will continue to benefit from continued skilled physical therapy for manual techniques prn and progression of exercises. PLAN FOR NEXT VISIT: gentle stretching and strengthening to be added. SUBJECTIVE: Pt with no change since first visit. Pain Score: 8/10 Pain Location: Neck Description: Burning;Stabbing;Aching Frequency: Intermittent OBJECTIVE MEASURES WITH LEVEL OF FUNCTION: Tenderness to below noted muscles TREATMENT: Manual Therapy: 1: STM to B upper traps, SCM, suboccipitals, and levator; assessing for tenderness, trigger points, tissue quality, and reproduction of pain/symptoms, then pressure to pt tolerance and until symptoms resolve with each spot 2: Active cervical extension plus manual overpressure on C7 promoting extension x10- pt shown how to perform for HEP Skilled Intervention: Manual skills to improve joint mobility, ROM, and decrease pain. Utilized anatomy knowledge of the therapist, and assessment of patient's response to intervention. Billing: [facility]: Manual Therapy ([id number]): 1:1 time: 40 minutes (3 units: 38-52 mins) Total time: 40 minutes Anu Shane PT PROGRESS Observed: 02/05/2018 Status: COMPLETED Source: SPRAY 1:46 PM [facility] [place] REPOSITORY HNO ID: [id number] Author: Anu Shane Service: (none) Author Type: Physical Therapist Type: Progress Notes Filed: 02/05/2018 8:34 PM Note Text: Episode Visit Count: 1 Therapist That Will Oversee The Plan Of Care: Anu Shane Start of Care Date: 02/05/18 Onset Date: 02/06/08 Plan of Care Certification Date: 02/05/18 Patient Identified by Name and Date of : Yes REHABILITATION AND SPORTS THERAPY PHYSICAL THERAPY EVALUATION PLAN OF CARE: Assessment: Pam Jerry presents with the chief complaint of chronic neck pain. She presents with impairments of limited cervical range of motion, poor posture, decreased scapular stabilization and thoracic extensor strength, fibromyalgia, and decreased tolerance for driving. She may benefit from skilled therapy services to improve the above noted deficits to decrease pain and improve quality of life. Prognosis: Fair Fair due to: clinical presentation;chronic nature of impairments;limited tolerance to activity Goals for Episode of Care: created on 02/05/18 through 04/07/18 Independent in a Home Exercise Program. Patient will decrease pain rating by 2 points to meet minimal clinical important difference for numeric pain rating scale. Restore pain free cervical ROM to WNL to allow for improved functional mobility and driving tolerance. Drive with no aggravation of pain/symptoms. Sit 30 minutes without pain/symptoms to allow for improved tolerance for sitting ADLs and driving G CODE REPORTING Based on clinical assessment and the score on the AM-PAC Scale Score Assessment Tool, the G code and corresponding severity modifiers are documented below. Evaluation: 02/05/2018 Current Status: Changing AND Maintaining Body Position: G8981 CH 0% impaired Goal Status: Changing AND Maintaining Body Position: G8982 CH 0% impaired Planned Interventions, Frequency, and Duration: Current Frequency: 1x/week Duration: 4 weeks Total Number of Visits Planned: 4 Planned Treatment Interventions: Therapeutic exercise;Neuromuscular re-education;Manual therapy;Self-chcf management;Patient/Family/Caregiver Education PLAN FOR NEXT VISIT: continue manual techniques, strengthen upper back Patient demonstrates good understanding of plan of care and treatment. The above goals and plan of care were discussed and agreed upon by patient/family. SUBJECTIVE: Pam Jerry is a 68 year old female seen today for neck pain for a decade so. Pt has pain at the base of her neck and that spreads out into the shoulders. Driving seems to be her big precipitating factor. She drives with arms on either side of the steering wheel 3 and 9. Pt can apply heat or wrap a scarf around her neck and this will help. Burning, stabbing, tenderness and tightness in the area. Pain Score: 8/10 (currently 1/10) Pain Location: Neck Description: Burning;Stabbing;Aching Frequency: Intermittent OBJECTIVE MEASURES WITH LEVEL OF FUNCTION: Cervical Spine AROM Cervical AROM determined by: Measurement Cervical Flexion (degrees)?: 45 Degrees Cervical Extension (degrees)?: 26 Degrees Cervical Side-Bend Right (degrees): 20 Degrees Cervical Side-Bend Left (degrees)?: 20 Degrees Cervical Rotation Right (degrees)?: 45 Degrees Cervical Rotation Left (degrees)?: 50 Thoracic Spine AROM Thoracic Flexion: Normal Thoracic Extension: Major limitation Thoracic Sidebend Right: Normal Thoracic Sidebend Left: Normal Thoracic Rotation Right: Normal Thoracic Rotation Left: Normal UE and Cervical Strength Deep Neck Flexor Endurance: 5 sec R UE Strength: 5/5 L UE Strength: 5/5 Special Tests - Cervical Cervical Special Tests: 1st Rib Mobility (All negative) 1st Rib Mobility: hypomobile Education: TREATMENT: Evaluation Manual Therapy: 1: 1st rib mobs x10 bilaterally 2: STM to B upper traps and levator 3: Active cervical extension plus manual overpressure on C7 promoting extension x10- pt shown how to perform for HEP Skilled Intervention: Manual skills to improve joint mobility, ROM, and decrease pain. Utilized anatomy knowledge of the therapist, and assessment of patient's response to intervention. Billing: [facility]: Evaluation - Low Complexity ([id number]) Manual Therapy ([id number]): 1:1 time: 20 minutes (1 unit: 8-22 mins) Total time: 48 minutes Anu Shane PT CNTHERAPY Observed: 02/05/2018 Status: COMPLETED Source: SPRAY 11:15 AM [facility] REPOSITORY OT/PT/Speech Visit (PTWS) PAM JERRY ([id number]) 1950 F Date Time Provider Department 02/05/18 11:15 AM ANU SHANE (PT) PTWS Date Time Provider Department Center 02/05/2018 11:15 AM [id number], SEAN (PT)PTWS [facility] Reason for Visit: PT Eval [747] Physical Therapy [503] Primary Visit Diagnosis:Fibromyalgia [M79.7] Other Visit Diagnosis:Cervical pain [M54.2] Allergies As of Date: 02/05/2018 Noted Allergy Reaction CATS 03/20/2005 5 - Intolerance Comments: ITCHY WATERY EYES AND SUCH NAPROSYN (NAPROXEN) 03/20/2005 7 - Swelling TRAMADOL 08/22/2009 8 - GI Upset VICODIN (HYDROCODONE-ACETAMINOPHE*03/28/2005 8 - GI Upset Date Reviewed: 01/24/2018 Reviewed by: Mia Pittman Ma - Fully Assessed Prescriptions as of 02/05/2018 Sig: LORAZEPAM 0.5 MG TABLET Take one tablet three time da* DULOXETINE 60 MG CAPSULE,SUSIE* Take 1 capsule by mouth once * HYDROCHLOROTHIAZIDE 12.5 MG C* Take 1 capsule by mouth once * ATORVASTATIN 40 MG TABLET Take 1 tablet by mouth once d* NICOTINE 14 MG/24 HR DAILY TR* Apply 1 Patch as directed sohail* Progress Notes: Anu Shane, PT 02/05/2018 8:34 PM Signed Episode Visit Count: 1 Therapist That Will Oversee The Plan Of Care: Anu Shane Start of Care Date: 02/05/18 Onset Date: 02/06/08 Plan of Care Certification Date: 02/05/18 Patient Identified by Name and Date of : Yes REHABILITATION AND SPORTS THERAPY PHYSICAL THERAPY EVALUATION PLAN OF CARE: Assessment: Pam Jerry presents with the chief complaint of chronic neck pain. She presents with impairments of limited cervical range of motion, poor posture, decreased scapular stabilization and thoracic extensor strength, fibromyalgia, and decreased tolerance for driving. She may benefit from skilled therapy services to improve the above noted deficits to decrease pain and improve quality of life. Prognosis: Fair Fair due to: clinical presentation;chronic nature of impairments;limited tolerance to activity Goals for Episode of Care: created on 02/05/18 through 04/07/18 Independent in a Home Exercise Program. Patient will decrease pain rating by 2 points to meet minimal clinical important difference for numeric pain rating scale. Restore pain free cervical ROM to WNL to allow for improved functional mobility and driving tolerance. Drive with no aggravation of pain/symptoms. Sit 30 minutes without pain/symptoms to allow for improved tolerance for sitting ADLs and driving G CODE REPORTING Based on clinical assessment and the score on the AM-PAC Scale Score Assessment Tool, the G code and corresponding severity modifiers are documented below. Evaluation: 02/05/2018 Current Status: Changing AND Maintaining Body Position: G8981 CH 0% impaired Goal Status: Changing AND Maintaining Body Position: G8982 CH 0% impaired Planned Interventions, Frequency, and Duration: Current Frequency: 1x/week Duration: 4 weeks Total Number of Visits Planned: 4 Planned Treatment Interventions: Therapeutic exercise;Neuromuscular re-education;Manual therapy;Self-chcf management;Patient/Family/Caregiver Education PLAN FOR NEXT VISIT: continue manual techniques, strengthen upper back Patient demonstrates good understanding of plan of care and treatment. The above goals and plan of care were discussed and agreed upon by patient/family. SUBJECTIVE: Pam Jerry is a 68 year old female seen today for neck pain for a decade so. Pt has pain at the base of her neck and that spreads out into the shoulders. Driving seems to be her big precipitating factor. She drives with arms on either side of the steering wheel 3 and 9. Pt can apply heat or wrap a scarf around her neck and this will help. Burning, stabbing, tenderness and tightness in the area. Pain Score: 8/10 (currently 1/10) Pain Location: Neck Description: Burning;Stabbing;Aching Frequency: Intermittent OBJECTIVE MEASURES WITH LEVEL OF FUNCTION: Cervical Spine AROM Cervical AROM determined by: Measurement Cervical Flexion (degrees)?: 45 Degrees Cervical Extension (degrees)?: 26 Degrees Cervical Side-Bend Right (degrees): 20 Degrees Cervical Side-Bend Left (degrees)?: 20 Degrees Cervical Rotation Right (degrees)?: 45 Degrees Cervical Rotation Left (degrees)?: 50 Thoracic Spine AROM Thoracic Flexion: Normal Thoracic Extension: Major limitation Thoracic Sidebend Right: Normal Thoracic Sidebend Left: Normal Thoracic Rotation Right: Normal Thoracic Rotation Left: Normal UE and Cervical Strength Deep Neck Flexor Endurance: 5 sec R UE Strength: 5/5 L UE Strength: 5/5 Special Tests - Cervical Cervical Special Tests: 1st Rib Mobility (All negative) 1st Rib Mobility: hypomobile Education: TREATMENT: Evaluation Manual Therapy: 1: 1st rib mobs x10 bilaterally 2: STM to B upper traps and levator 3: Active cervical extension plus manual overpressure on C7 promoting extension x10- pt shown how to perform for HEP Skilled Intervention: Manual skills to improve joint mobility, ROM, and decrease pain. Utilized anatomy knowledge of the therapist, and assessment of patient's response to intervention. Billing: [facility]: Evaluation - Low Complexity (18012) Manual Therapy ([id number]): 1:1 time: 20 minutes (1 unit: 8-22 mins) Total time: 48 minutes Anu Shane PT PROGRESS Observed: 01/24/2018 Status: COMPLETED Source: SPRAY 1:26 PM [facility] REPOSITORY HNO ID: [id number] Author: Daina Geiger Service: (none) Author Type: Physician Type: Progress Notes Filed: 01/24/2018 2:47 PM Note Text: Chief Complaint Patient presents with: F/U 3 Month: Anxiety and Fibromyalgia HPI Pam Jerry is a 68 year old female who presents here today for a 3 mo f/u. Pt here today for a 3 mo f/u. She has completed her labs and would like to review them. Lipids - Admits to not having great will power and knows she needs to lose weight. Smoking - Using patch to help some. Fibro - Neck pain increased; would like PT at [facility]. Past medical history, appointments, medications, allergies reviewed. 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 - Hypercholesterolemia 2014 - Impaired fasting glucose 2014 - Insomnia - Kidney stone - Liver function test abnormality - Multiple nodules of lung All less than 5 mm in size, diagnosed November 2015, suggested 3 month follow-up imaging - Myalgia and myositis, unspecified - Osteopenia - Primary fibromyalgia syndrome - Tobacco dependence - Tubal without intrauterine Previous Surgical History PAST SURGICAL HISTORY Procedure Laterality Date - APPENDECTOMY 1961 - LAP CHOLECYSTECT/CHOLANGIOGRAPHY 04/11/05 - LIGATE FALLOPIAN TUBE TUBAL - REMOVAL SPLEEN, TOTAL 1961 - TOTAL ABDOM HYSTERECTOMY 1998 Family History FAMILY HISTORY Problem Relation Age of Onset - Cancer Mother LUNG - Heart Mother - Heart Maternal Grandfather Patient Allergies ALLERGIES Allergen Reactions - Cats Intolerance ITCHY WATERY EYES AND SUCH - Naprosyn [Naproxen] Swelling - Tramadol GI Upset - Vicodin [Hydrocodon* GI Upset Current Medications Current Outpatient Prescriptions on File Prior to Visit: DULoxetine (CYMBALTA) 60 mg capsule Take 1 capsule by mouth once daily. Hydrochlorothiazide 12.5 mg capsule Take 1 capsule by mouth once daily. LORazepam (ATIVAN) 0.5 mg tab Take one tablet three time daily as needed. atorvastatin (LIPITOR) 40 mg tablet Take 1 tablet by mouth once daily. nicotine (NICODERM) 14 mg/24 hr Apply 1 Patch as directed every 24 hours. unsure of dose, #2 No current facility-administered medications on file prior to visit. Social History Social History Marital status: Spouse name: Montrell Years of education: Number of children: 1 Social History Main Topics Smoking status: Former Smoker Packs/day: 0.25 Years: 15.00 Types: Cigarettes Quit date: 07/15/1993 Smokeless tobacco: Former User Quit date: 2017 Alcohol use: Yes 1.5 oz/week Cans of Beer (12oz): 1 per week Drug use: No EXAM: BP 130/86 (BP Site: Left Arm, BP Position: Sitting, BP Cuff Size: Regular Adult) Pulse 68 Resp 16 Wt 90.4 kg (199 lb 6.4 oz) BMI 34.23 kg/m? General Appearance: Well appearing, alert, in no acute distress, well-hydrated, well nourished.. Neck: decreased ext; tenderness diffusely across upper back and neck. Lungs: Lungs clear to auscultation. No wheezing, rhonchi, rales. Heart: RRR without murmur, gallop, or rubs. No ectopy. Abdomen: Normal abdominal exam, Abdomen soft, non-tender. Bowel sounds normal. No masses, organomegaly. Health Maintenance List HEPATITIS C SCREENING due on 1996 DTAP,TDAP,TD(2 - Tdap) due on 11/01/2012 INFLUENZA(1) due on 02/01/2018 MAMMOGRAM due on 02/27/2018 PNEUMOVAX AGE 65 AND OVER WITH 5YR LOOKBACK(1) due on 06/14/2018 FECAL OCCULT BLOOD due on 10/30/2018 DIABETES SCREEN due on 01/15/2021 LIPID SCREEN due on 01/15/2023 BONE DENSITY Completed ADULT PREVNAR-13 Completed Data reviewed Appointment on 01/15/2018 Component Date Value - Protein, Total 01/15/2018 7.6 - Albumin 01/15/2018 4.4 - Calcium 01/15/2018 9.7 - Bilirubin, Total 01/15/2018 0.2 - Alkaline Phosphatase 01/15/2018 101 - AST 01/15/2018 36* - Glucose 01/15/2018 96 - BUN 01/15/2018 15 - Creatinine 01/15/2018 0.71 - Sodium 01/15/2018 140 - Potassium 01/15/2018 4.2 - Chloride 01/15/2018 102 - CO2 01/15/2018 23 - Anion Gap 01/15/2018 15 - ALT 01/15/2018 30 - eGFR- 01/15/2018 >60 - eGFR-All Other Races 01/15/2018 >60 - Cholesterol, Total 01/15/2018 159 - Triglyceride 01/15/2018 54 - HDL Cholesterol 01/15/2018 64 - LDL Cholesterol 01/15/2018 84 - Non HDL Cholesterol 01/15/2018 95 - Fasting Time 01/15/2018 10 - VLDL Cholesterol 01/15/2018 11 - TC:HDL Ratio 01/15/2018 2.48 - LDL:HDL Ratio 01/15/2018 1.31 - Hemoglobin A1C 01/15/2018 5.7* - Estimated Average Glucose 01/15/2018 117 PDMP website checked and validated. All prescriptions have been APPROPRIATELY filled. No suspicious activity was identified. 01/24/2018 by Daina Geiger MD ASSESSMENT/PLAN: 1. Fibromyalgia - ICD9: 729.1, ICD10: M79.7 (primary diagnosis) - CONSULT TO PHYSICAL THERAPY 2. Anxiety - ICD9: 300.00, ICD10: F41.9 Continue current medications. - LORAZEPAM 0.5 MG TABLET 3. Hyperlipidemia, unspecified hyperlipidemia type - ICD9: 272.4, ICD10: E78.5 - good control - Continue current medication. 4. Cervical pain - ICD9: 723.1, ICD10: M54.2 - CONSULT TO PHYSICAL THERAPY Follow up in 3 months Daina Geiger MD The documentation for this note was completed by Mia Pittman Ma acting as scribe for Daina Geiger MD. January 24, 2018 1:27 PM. CNOV Observed: 01/24/2018 Status: COMPLETED Source: SPRAY 1:20 PM [facility] REPOSITORY Office Visit (FAMPWS) PAM JERRY ([id number]) 1950 F Date Time Provider Department 01/24/18 1:20 PM DAINA GEIGER During your visit today, we recorded the following information about you: Pulse Respiration Blood pressure Weight 68/minute 16/minute 130/86 90.4 kg Daina Geiger MD 01/24/2018 2:47 PM Signed Chief Complaint Patient presents with: F/U 3 Month: Anxiety and Fibromyalgia HPI Pam Jerry is a 68 year old female who presents here today for a 3 mo f/u. Pt here today for a 3 mo f/u. She has completed her labs and would like to review them. Lipids - Admits to not having great will power and knows she needs to lose weight. Smoking - Using patch to help some. Fibro - Neck pain increased; would like PT at [facility]. Past medical history, appointments, medications, allergies reviewed. 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 - Hypercholesterolemia 2014 - Impaired fasting glucose 2014 - Insomnia - Kidney stone - Liver function test abnormality - Multiple nodules of lung All less than 5 mm in size, diagnosed November 2015, suggested 3 month follow-up imaging - Myalgia and myositis, unspecified - Osteopenia - Primary fibromyalgia syndrome - Tobacco dependence - Tubal without intrauterine Previous Surgical History PAST SURGICAL HISTORY Procedure Laterality Date - APPENDECTOMY 1961 - LAP CHOLECYSTECT/CHOLANGIOGRAPHY 04/11/05 - LIGATE FALLOPIAN TUBE TUBAL - REMOVAL SPLEEN, TOTAL 1961 - TOTAL ABDOM HYSTERECTOMY 1998 Family History FAMILY HISTORY Problem Relation Age of Onset - Cancer Mother LUNG - Heart Mother - Heart Maternal Grandfather Patient Allergies ALLERGIES Allergen Reactions - Cats Intolerance ITCHY WATERY EYES AND SUCH - Naprosyn [Naproxen] Swelling - Tramadol GI Upset - Vicodin [Hydrocodon* GI Upset Current Medications Current Outpatient Prescriptions on File Prior to Visit: DULoxetine (CYMBALTA) 60 mg capsule Take 1 capsule by mouth once daily. Hydrochlorothiazide 12.5 mg capsule Take 1 capsule by mouth once daily. LORazepam (ATIVAN) 0.5 mg tab Take one tablet three time daily as needed. atorvastatin (LIPITOR) 40 mg tablet Take 1 tablet by mouth once daily. nicotine (NICODERM) 14 mg/24 hr Apply 1 Patch as directed every 24 hours. unsure of dose, #2 No current facility-administered medications on file prior to visit. Social History Social History Marital status: Spouse name: Montrell Years of education: Number of children: 1 Social History Main Topics Smoking status: Former Smoker Packs/day: 0.25 Years: 15.00 Types: Cigarettes Quit date: 07/15/1993 Smokeless tobacco: Former User Quit date: 2017 Alcohol use: Yes 1.5 oz/week Cans of Beer (12oz): 1 per week Drug use: No EXAM: BP 130/86 (BP Site: Left Arm, BP Position: Sitting, BP Cuff Size: Regular Adult) Pulse 68 Resp 16 Wt 90.4 kg (199 lb 6.4 oz) BMI 34.23 kg/m? General Appearance: Well appearing, alert, in no acute distress, well-hydrated, well nourished.. Neck: decreased ext; tenderness diffusely across upper back and neck. Lungs: Lungs clear to auscultation. No wheezing, rhonchi, rales. Heart: RRR without murmur, gallop, or rubs. No ectopy. Abdomen: Normal abdominal exam, Abdomen soft, non-tender. Bowel sounds normal. No masses, organomegaly. Health Maintenance List HEPATITIS C SCREENING due on 1996 DTAP,TDAP,TD(2 - Tdap) due on 11/01/2012 INFLUENZA(1) due on 02/01/2018 MAMMOGRAM due on 02/27/2018 PNEUMOVAX AGE 65 AND OVER WITH 5YR LOOKBACK(1) due on 06/14/2018 FECAL OCCULT BLOOD due on 10/30/2018 DIABETES SCREEN due on 01/15/2021 LIPID SCREEN due on 01/15/2023 BONE DENSITY Completed ADULT PREVNAR-13 Completed Data reviewed Appointment on 01/15/2018 Component Date Value - Protein, Total 01/15/2018 7.6 - Albumin 01/15/2018 4.4 - Calcium 01/15/2018 9.7 - Bilirubin, Total 01/15/2018 0.2 - Alkaline Phosphatase 01/15/2018 101 - AST 01/15/2018 36* - Glucose 01/15/2018 96 - BUN 01/15/2018 15 - Creatinine 01/15/2018 0.71 - Sodium 01/15/2018 140 - Potassium 01/15/2018 4.2 - Chloride 01/15/2018 102 - CO2 01/15/2018 23 - Anion Gap 01/15/2018 15 - ALT 01/15/2018 30 - eGFR- 01/15/2018 >60 - eGFR-All Other Races 01/15/2018 >60 - Cholesterol, Total 01/15/2018 159 - Triglyceride 01/15/2018 54 - HDL Cholesterol 01/15/2018 64 - LDL Cholesterol 01/15/2018 84 - Non HDL Cholesterol 01/15/2018 95 - Fasting Time 01/15/2018 10 - VLDL Cholesterol 01/15/2018 11 - TC:HDL Ratio 01/15/2018 2.48 - LDL:HDL Ratio 01/15/2018 1.31 - Hemoglobin A1C 01/15/2018 5.7* - Estimated Average Glucose 01/15/2018 117 PDMP website checked and validated. All prescriptions have been APPROPRIATELY filled. No suspicious activity was identified. 01/24/2018 by Daina Geiger MD ASSESSMENT/PLAN: 1. Fibromyalgia - ICD9: 729.1, ICD10: M79.7 (primary diagnosis) - CONSULT TO PHYSICAL THERAPY 2. Anxiety - ICD9: 300.00, ICD10: F41.9 Continue current medications. - LORAZEPAM 0.5 MG TABLET 3. Hyperlipidemia, unspecified hyperlipidemia type - ICD9: 272.4, ICD10: E78.5 - good control - Continue current medication. 4. Cervical pain - ICD9: 723.1, ICD10: M54.2 - CONSULT TO PHYSICAL THERAPY Follow up in 3 months Daina Geiger MD The documentation for this note was completed by Mia Pittman Ma acting as scribe for Daina Geiger MD. January 24, 2018 1:27 PM. Mia Pittman Ma 01/24/2018 3:00 PM Signed PT consult faxed to [employer]/Demographics. Mia Pittman Ma Referring Provider: DAINA GEIGER [[id number]] Allergies As of Date: 01/24/2018 Noted Allergy Reaction CATS 03/20/2005 5 - Intolerance Comments: ITCHY WATERY EYES AND SUCH NAPROSYN (NAPROXEN) 03/20/2005 7 - Swelling TRAMADOL 08/22/2009 8 - GI Upset VICODIN (HYDROCODONE-ACETAMINOPHE*03/28/2005 8 - GI Upset Date Reviewed: 01/24/2018 Reviewed by: Mia Pittman Ma - Fully Assessed Reason for Visit: F/U 3 Month [443] Cmt: Anxiety and Fibromyalgia Primary Visit Diagnosis:Fibromyalgia [M79.7] Other Visit Diagnoses:Anxiety [F41.9] Hyperlipidemia, unspecified hyperlipidemia type [E78.5] Cervical pain [M54.2] Order(s):LORazepam (ATIVAN) 0.5 mg tabTake one tablet three time daily as needed.Disp: 90 tabletRfl: 2 CONSULT TO PHYSICAL THERAPY [8339] Order #: [id number]: 1 Prescriptions as of 01/24/2018 Sig: LORAZEPAM 0.5 MG TABLET Take one tablet three time da* DULOXETINE 60 MG CAPSULE,SUSIE* Take 1 capsule by mouth once * HYDROCHLOROTHIAZIDE 12.5 MG C* Take 1 capsule by mouth once * ATORVASTATIN 40 MG TABLET Take 1 tablet by mouth once d* NICOTINE 14 MG/24 HR DAILY TR* Apply 1 Patch as directed sohail* Problem List As Of Date 01/24/2018 Noted Resolved CHOLECYSTITIS SEE ALSO GALLBLADDER CHRONIC [K*INVALID FOR* Swelling, mass, or lump in chest [R22.2] INVALID FOR*04/17/2017 Unspecified Myalgia and Myositis [[id number]] 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 Mia Pittman Ma Prescriptions ordered this encounter Disp Refills Start End LORAZEPAM 0.5 MG TABLET 90 t* 2 01/24/2018 04/22/2018 Class: Print RX Sig: Take one tablet three time daily as needed. Medications Discontinued During This Encounter LORazepam (ATIVAN) 0.5 mg tab 90 t* 2 10/30/2017 01/24/2018 Class: Print RX Sig: Take one tablet three time daily as needed. Disc: Reason for discontinue is not on file. Disposition: Return in about 3 months (around 04/26/2018). Follow-up and Disposition History Recorded Encounter Status:Closed by DAINA GEIGER MD on 01/24/18 HEMOGLOBIN A1C Collected: 01/15/2018 Status: F Source: SPRAY 8:28 AM [facility] REPOSITORY TYPE CODE TESTS RESULT OUT OF REFERENCE UNITS RANGE LAB HGBA1C 4.3-5.6 % High Hemoglobin A1c 5.7 LAB HBA0 mg/dL Est. Average Glucose 117 Result Comment: eAG: (Estimated average glucose) is a calculated value from HgbA1c and is dental sales representative of the average blood glucose level in the last 2-3 month period. Performed By: #### HBA1C #### [facility] [address] [address] COMP METABOLIC PANEL Collected: 01/15/2018 Status: F Source: SPRAY 8:28 AM [facility] REPOSITORY TYPE CODE TESTS RESULT OUT OF REFERENCE UNITS RANGE LAB TP 6.3-8.0 g/dL Protein, Total 7.6 LAB ALB 3.9-4.9 g/dL Albumin 4.4 LAB CA 8.5-10.2 mg/dL Calcium, Total 9.7 LAB TBIL 0.2-1.3 mg/dL Bilirubin, Total 0.2 LAB ALKP 32-117 U/L Alkaline Phosphatase 101 LAB AST 13-35 U/L AST High 36 LAB GLU 74-99 mg/dL Glucose 96 Result Comment: The [place] Diabetes Association (ADA) provides guidance for cutoff values for fasting glucose and random glucose. The ADA defines fasting as no caloric intake for at least 8 hours. Fas ting plasma glucose results between 100 to 125 mg/dL indicate increased risk for diabetes (prediabetes). Fasting plasma glucose results greater than or equal to 126 mg/dL meet the criteria for diagnosis of diabetes. In the absence of unequivocal hyperglycemia, results should be confirmed by repeat testing. In a patient with classic symptoms of hyperglycemia or hyperglycemic crisis, random plasma glucose results greater than or equal to 200 mg/dL meet the criteria for diagnosis of diabetes. Reference: Standards of Medical Care in Diabetes 2016, [place] Diabetes Association. Diabetes Care. 2016.39(Suppl 1). LAB BUN 7-21 mg/dL BUN 15 LAB CRET 0.58-0.96 mg/dL Creatinine 0.71 LAB NA 136-144 mmol/L Sodium 140 LAB K 3.7-5.1 mmol/L Potassium 4.2 LAB CL 97-105 mmol/L Chloride 102 LAB CO2 22-30 mmol/L CO2 23 LAB AGAP 9-18 mmol/L Anion Gap 15 LAB ALT 7-38 U/L ALT 30 LAB GFRAA eGFR- Amer. >60 LAB GFRNAA . eGFR-All Other Races >60 Result Comment: eGFR (Estimated GFR) Units of measure: mL/min/1.73 meters squared eGFR is derived from the reexpressed MDRD Study equation using the following parameters: serum creatinine, age, gender and race. The creatinine assay has been calibrated to be traceable to IDMS. An eGFR <60 mL/min/1.73m2 for >3 months is consistent with chronic kidney disease. Refer to KDOQI guidelines for clinical interpretation. In patients with unstable renal function, e.g. those with acute kidney injury, the eGFR may not accurately reflect actual GFR. Performed By: #### CMP, LIPB #### [facility] [address] [place], [place] [address] LIPID PANEL, BASIC Collected: 01/15/2018 Status: F Source: SPRAY 8:28 AM [facility] REPOSITORY TYPE CODE TESTS RESULT OUT OF REFERENCE UNITS RANGE LAB CHOL <200 mg/dL Cholesterol 159 Result Comment: <200 mg/dL, Desirable 200-239 mg/dL, Borderline high >239 mg/dL, High LAB TRIGLY <150 mg/dL Triglyceride 54 Result Comment: <150 mg/dL, Normal 150-199 mg/dL, Borderline high 200-499 mg/dL, High >499 mg/dL, Very high LAB HDL >39 mg/dL HDL-Cholesterol 64 Result Comment: 40-59 mg/dL, Acceptable >59 mg/dL, High: Negative risk factor for coronary heart disease <40 mg/dL, Low: Positive risk factor for coronary heart disease LAB LDL <100 mg/dL LDL-Cholesterol 84 Result Comment: <100 mg/dL, Optimal 100-129 mg/dL, Near optimal/above optimal 130-159 mg/dL, Borderline high 160-189 mg/dL, High >189 mg/dL, Very high Secondary prevention optimal LDL Cholesterol levels are recommended to be < 70 mg/dL LAB NONHDL <130 mg/dL Non HDL Cholesterol 95 Result Comment: <130 mg/dL, Optimal 130-159 mg/dL, Near optimal/above optimal 160-189 mg/dL, Borderline high 190-219 mg/dL, High >219 mg/dL, Very high Secondary prevention optimal non HDL Cholesterol levels are recommended to be < 100 mg/dL LAB FT hrs Fasting Time 10 LAB VLDL <30 mg/dL VLDL Cholesterol 11 LAB TCHDL <5.10 TC:HDL Ratio 2.48 LAB LDLHDL <2.54 LDL:HDL Ratio 1.31 Result Comment: Reference: 1. National Cholesterol Education Program ATP III Guideline At-A-Glance Quick Desk Reference: National Heart, Lung, and Blood [place]. National Institutes of Health. 2001: NIH Publication No. 01-3305. 2. An International Atherosclerosis Society position paper: global recommendations for the management of dyslipidemia: executive summary, Atherosclerosis. 2014: 232(2):410-413. Performed By: #### CMP, LIPB #### [facility] [address] [place] [address] [facility] Observed: 01/07/2018 Status: COMPLETED Source: SPRAY 12:00 AM [facility] REPOSITORY Patient Outreach (FAMPST) PAM JERRY ([id number]) 1950 F Date Time Provider Department 01/07/18 DAINA GEIGER FAMPST During your visit today, we recorded the following information about you: Allergies As of Date: 01/07/2018 Noted Allergy Reaction CATS 03/20/2005 5 - Intolerance Comments: ITCHY WATERY EYES AND SUCH NAPROSYN (NAPROXEN) 03/20/2005 7 - Swelling TRAMADOL 08/22/2009 8 - GI Upset VICODIN (HYDROCODONE-ACETAMINOPHE*03/28/2005 8 - GI Upset Date Reviewed: 10/30/2017 Reviewed by: Arin Camarillo LPN - Fully Assessed Visit Diagnosis:Medication management [Z79.899] Order(s):HGB A1C [HRUDI0U] Order #: [id number] FUTURE Prescriptions as of 01/07/2018 Sig: HYDROCHLOROTHIAZIDE 12.5 MG C* Take 1 capsule by mouth once * X LORAZEPAM 0.5 MG TABLET Take one tablet three time da* ATORVASTATIN 40 MG TABLET Take 1 tablet by mouth once d* NICOTINE 14 MG/24 HR DAILY TR* Apply 1 Patch as directed sohail* X CYMBALTA 60 MG CAPSULE,DELAYE* Take one(1) capsule daily. 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] INVALID FOR* Fibromyalgia [M79.7] INVALID FOR* Hyperlipidemia [E78.5] INVALID FOR* Anxiety [F41.9] INVALID FOR* Encounter Status:Closed by KENROY HERNANDEZ on 03/14/18 URGENT CARE VISIT Observed: 12/01/2017 Status: F Source: MARILY[facility] REPORT 10:[address] AM [address] [place] [address] OFFICE VISIT Date of Service: 12/01/17 MR#: [id number] Acct: [id number] Name: PAM JERRY Rep #: [id number] : 1950 Provider: CHASE Mcfarlane Age/Sex: 67/F Location: [facility] Status: Signed Intake Vital Signs12/01/17 Height 5 ft 4 in 12/01/17 Weight: 193 lb 12/01/17 Body Mass Index (BMI) 33.1 Intake Visit Reasons: POISON PACHECO Chief Complaint: Poison pacheco exposure Permastone Mechanic Required: No Is patient in pain?: No Allergies No Known Allergies Allergy (Unverified 12/01/17 08:40) Medications cyclobenzaprine 5 mg tablet 5 mg PO TID 11/25/17 [History Confirmed 12/01/17] duloxetine 20 mg capsule,delayed release 20 mg PO BID 11/25/17 [History Confirmed 12/01/17] lorazepam 0.5 mg tablet PO 30 Days #90 11/25/17 [History Confirmed 12/01/17] prednisone 50 mg tablet 50 mg PO QDAY #5 tab 11/25/17 [Rx Confirmed 12/01/17] [facility] Surgical History History of appendectomy (Acute) History of cholecystectomy (Acute) History of hysterectomy (Acute) removal of spleen (Acute) Social History Smoking Status: Never smoker alcohol intake: never HPI HPI Chief Complaint: Poison pacheco exposure Details: PAM JERRY, is a 67 F who presents to the office today for 8 day history of poison pacheco that occurred after weeding out her garden. She was treated here a week ago with 5 days of Prednisone 50 mg. She finished that a few days ago but it is returning more each day, now affecting a small area in her left ear, right facial cheek, abdomen and large area left lateral hip. It is not worse at night. She has no areas on her hands or feet. No open or draining areas. No pain. No fever or chills. ROS Const Constitutional: No body ache, chills, fatigue, fever(s), night sweats, change in appetite, weakness, frequent falls, headache(s) or excessive sweating Eyes Eyes: No visual disturbances, light sensitivity, eye pain or change in vision ENT ENT: No ear pain, ear discharge, hearing loss, dizziness/vertigo, nasal discharge, difficulty swallowing, sore throat, neck pain, headache(s), throat swelling, tongue swelling or lip swelling Resp Respiratory: No cough, chest congestion, hemoptysis, shortness of breath or wheezing Cardio Cardiology: No shortness of breath, irregular heart rhythm, lightheadedness, chest pain at rest, chest pain with exertion, generalized swelling, orthopnea, palpitations or excessive sweating Gastro GI: No difficulty swallowing, abdominal pain, bloating, change in bowel habits, diarrhea, blood in stool, Black,tarry stools, nausea/dyspepsia or vomiting Genitourinary-Female: No burning urination, urinary frequency, urinary urgency, blood in urine or Vaginal Itching Musc Musculoskeletal: No joint pain, back pain, numbness, tingling or neck pain Skin Skin: Positive for lesions (see HPI) and rash (SEE HPI); no itching (SEE HPI) Neuro Neurology: No visual disturbances, numbness, tingling, abnormal speech, confusion, unsteady gait/balance, dizziness, weakness, frequent falls, loss of vision or headache(s) Psych Psychiatric: No change in appetite, No confusion, No anxiety Endo Endocrine: No fatigue, cold intolerance, excessive sweating, flushing, heat intolerance or increased thirst/drinking Aller/Imm Allergy/Immunologic: No wheezing, itchy eyes (SEE HPI), food intolerance, seasonal allergy symptoms, hives, throat swelling, tongue swelling or lip swelling Shine/Lymp Hematologic/Lymphatic: No easy bruising Exam Const General: cooperative, no acute distress Orientation: alert, oriented x3 HENMT Head: normal to inspection, normocephalic Ears: hearing grossly normal bilaterally, TM normal on the right, TM normal on the left, no periauricular adenopathy, EAC's normal, external ear abnormal ( erythematous itchy papular vesicular rash near tragus) Negative for no auricular hematomas, no auricular tenderness or no pain with movement of external ear Nose: nasal mucous membranes and turbinates normal, no nasal discharge Face and sinus: normal facial exam Mouth: oral mucosae normal, oropharynx normal, tongue normal Teeth and gingiva: dentition normal, gingiva normal Throat: posterior oropharynx normal Eyes General: appearance normal, both eyes and all related structures Eyelids: eyelids normal Conjunctivae: conjunctivae normal Sclera: sclerae normal Neck Neck: normal visual inspection, full ROM, no lymphadenopathy Carotids: no bruits Lymphatic: no lymphadenopathy noted Chest Chest palpation AND inspection: normal inspection of the chest Resp Effort AND Inspection: normal respiratory effort, able to speak in complete sentences, symmetric chest movement, no audible wheezes, no cough Auscultation: Bilateral: Clear to Auscultation Cardio Rate: regular rate Rhythm: regular rhythm Heart Sounds: S1 normal, S2 normal GI Inspection: normal to inspection, other (large area of rash left lateral poison pacheco) Auscultation: normal bowel sounds Palpation: soft, no hepatosplenomegaly, no pulsatile masses Other: Left lateral lower abdomen, mainly lateral hip area with erythematous papulo vesicular rash c/w contact dermatitis. There are multiple linear areas that made me question scabies, but she has been scratching the area and there does not appear to be any migration to intrigenous areas. And, the rash did clear temporarily with the 5 day prednisone treatment. Skin Rashes: rashes noted (left external ear, right face cheek, right abdomen, left lateral hip) Other: rash listed above is c/w contact dermatitis. Neuro General: alert, oriented x3, moves all extremities Speech: speech normal Extrem General: normal exam except as noted (other than skin rashes as previously noted. ) Psych Appearance: grossly normal, well kempt Mental Status: mental status grossly normal Speech and Movement: speech and movement normal Thought Content: normal Judgment: judgment good Assessment AND Plan Problems 1. Contact dermatitis and eczema due to plant L24.7 Plan Medrol dose pack rx called to [facility] pharmacist. Kenalog 60 mg injection given in office today. Patient agrees to f/u with PCP if rash persists. (second visit for this recurrent rash) PRN Benadryl for itching. Orders Orders: Medications New: Coding Level of Care Code Off vis,est,level 3 Diagnoses Contact dermatitis and eczema due to plant L24.7 12/01/17 1006 <Electronically signed by Gisella STONE> Date Gisella STONE Cosigner Signature: Date (if applicable) CC: URGENT CARE VISIT Observed: 11/25/2017 Status: F Source: [facility]ILYN REPORT 1:30 PM [facility] REPOSITORY [address] [address] [place] [address] OFFICE VISIT Date of Service: 11/25/17 MR#: [id number] Acct: [id number] Name: PAM JERRY Rep #: [id number] : 1950 Provider: Rg STONE Age/Sex: 67/F Location: [facility] Status: Signed Intake Vital Signs11/25/17 Height 5 ft 4 in Intake Visit Reasons: POISON PACHECO Chief Complaint: Poison pacheco exposure Allergies No Known Allergies Allergy (Unverified 11/25/17 12:17) Medications cyclobenzaprine 5 mg tablet 5 mg PO TID 11/25/17 [History Confirmed 11/25/17] duloxetine 20 mg capsule,delayed release 20 mg PO BID 11/25/17 [History Confirmed 11/25/17] lorazepam 0.5 mg tablet PO 30 Days #90 11/25/17 [History Confirmed 11/25/17] prednisone 50 mg tablet 50 mg PO QDAY #5 tab 11/25/17 [Rx Confirmed 11/25/17] PFSH Surgical History History of appendectomy (Acute) History of cholecystectomy (Acute) History of hysterectomy (Acute) removal of spleen (Acute) Social History Smoking Status: Never smoker alcohol intake: never HPI HPI Chief Complaint: Poison pacheco exposure Details: PAM JERRY, is a 67 F who presents to the office today for initial evaluation approximately 2 day history of poison pacheco exposure. Patient states while at home while working her flower garden she feels she was exposed to poison pacheco and therefore developed that there are erythematous vesicular rash to left neck left chest and right ear. She notes localized pruritus to the same, stating she use topical [id number] hydrocortisone cream with minimal relief of symptoms. She notes no complaints of pruritic or constricted airway or difficulty breathing. She states she has had poison pahceco exposure in the past, stating that the only thing that has helped her previously is oral prednisone and is requesting the same today. She notes no other associated symptoms no other alleviating or aggravating factors. ROS Const Constitutional: No chills, fever(s) or body ache Eyes Eyes: No change in vision ENT ENT: No abnormal hearing, ear pain, ear discharge, ear pressure, hearing loss, tongue swelling, throat swelling, lip swelling or sore throat Resp Respiratory: No cough, chest congestion or shortness of breath Cardio Cardiology: No chest pain at rest, chest pain with exertion, shortness of breath, dyspnea on exertion, irregular heart rhythm, generalized swelling or leg pain with exertion Gastro GI: No abdominal pain, change in stool character or change in bowel habits Musc Musculoskeletal: No joint pain, back pain or limited range of motion Skin Skin: Positive for rash Neuro Neurology: No abnormal hearing, abnormal speech or abnormal movements Aller/Imm Allergy/Immunologic: No tongue swelling, throat swelling or lip swelling Exam Const General: cooperative, healthy appearing, no acute distress, comfortable Nutritional Appearance: average body habitus Orientation: alert, awake, oriented x3 HENMT Head: normal to inspection Ears: hearing grossly normal bilaterally, external ears normal, TM's normal bilaterally, EAC's normal Nose: external nose normal, nares normal, septum normal, no nasal discharge Face and sinus: normal facial exam, face symmetric Mouth: tongue normal, lip normal, oropharynx normal, oral mucosae normal Teeth and gingiva: dentition normal, gingiva normal Throat: uvula midline, posterior oropharynx normal, no postnasal drainage Eyes General: appearance normal, both eyes and all related structures Neck Neck: normal visual inspection, full ROM, no lymphadenopathy, no meningeal signs, supple Neck mass: No Thyroid: thyroid normal Lymphatic: no lymphadenopathy noted Chest Chest palpation AND inspection: normal inspection of the chest Resp Effort AND Inspection: normal respiratory effort, able to speak in complete sentences, symmetric chest movement Auscultation: Bilateral: Clear to Auscultation Cardio Palpation: normal PMI Rate: regular rate Rhythm: regular rhythm Heart Sounds: S1 normal, S2 normal, no gallops, no murmurs, no rubs Pulses: radial pulses present Skin Lesions: no lesions Rashes: rashes noted (erythematous vesicular rash appreciated to R ext ear, L neck, and L abd) Psych Appearance: grossly normal Mental Status: mental status grossly normal Mood: congruent mood Affect: normal affect Speech and Movement: speech and movement normal Attitude: cooperative Thought Process: normal Thought Content: normal Judgment: judgment good Assessment AND Plan Problems 1. Contact dermatitis due to poison pacheco L23.7 Plan Prednisone as prescribed today. Skin care including topical calamine lotion as needed. Oral Benadryl as needed for symptomatic relief. Follow-up with PCP in 5 7 days should symptoms not improved, sooner should symptoms worsen or any other concerns develop. Patient states acknowledging understanding all the above. This note was generated with [employer] dictation software. It may contain incorrect words, spelling, and punctuation that were not noted in checking the note before signing. Medications New: Coding Level of Care Code Off vis,new,level 3 Diagnoses Contact dermatitis due to poison pacheco L23.7 11/25/17 1330 <Electronically signed by Rg STONE> Date Rg STONE Cosigner Signature: Date (if applicable) CC: PROGRESS Observed: 10/30/2017 Status: COMPLETED Source: [place] 11:14 AM [facility] REPOSITORY O ID: [id number] Author: Daina Geiger Service: (none) Author Type: Physician Type: Progress Notes Filed: 11/03/2017 6:27 PM Note Text: Chief Complaint Patient presents with: 3 mo follow up anxiety, fibro, lipid HPI Pam Jerry is a 67 year old female who presents here today for follow up. Having some swelling of hands. Trying to watch diet, struggles with losing weight. Anxiety: controlled on Ativan 0.5 mg TID and Cymbalta 60 mg daily. Fibromyalgia: the Cymbalta is helping with the Fibromyalgia. [facility] which [facility]; has not done this as much recently due to doing more yard work. ? Hyperlipidemia: is taking Lipitor 40 mg daily. Has not smoked for years, but continues to use the Nicotine patches. Past medical history, appointments, medications, allergies reviewed. 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 - Hypercholesterolemia 2014 - Impaired fasting glucose 2014 - Insomnia - Kidney stone - Liver function test abnormality - Multiple nodules of lung All less than 5 mm in size, diagnosed November 2015, suggested 3 month follow-up imaging - Myalgia and myositis, unspecified - Osteopenia - Primary fibromyalgia syndrome - Tobacco dependence - Tubal without intrauterine Previous Surgical History PAST SURGICAL HISTORY Procedure Laterality Date - APPENDECTOMY 1961 - LAP CHOLECYSTECT/CHOLANGIOGRAPHY 04/11/05 - LIGATE FALLOPIAN TUBE TUBAL - REMOVAL SPLEEN, TOTAL 1961 - TOTAL ABDOM HYSTERECTOMY 1998 Family History FAMILY HISTORY Problem Relation Age of Onset - Cancer Mother LUNG - Heart Mother - Heart Maternal Grandfather Patient Allergies ALLERGIES Allergen Reactions - Cats Intolerance ITCHY WATERY EYES AND SUCH - Naprosyn [Naproxen] Swelling - Tramadol GI Upset - Vicodin [Hydrocodon* GI Upset Current Medications Current Outpatient Prescriptions on File Prior to Visit: atorvastatin (LIPITOR) 40 mg tablet Take 1 tablet by mouth once daily. nicotine (NICODERM) 14 mg/24 hr Apply 1 Patch as directed every 24 hours. unsure of dose, #2 duloxetine hcl(CYMBALTA 60 MG CAP) Take one(1) capsule daily. LORazepam (ATIVAN) 0.5 mg tab Take one tablet three time daily as needed. No current facility-administered medications on file prior to visit. Social History Social History Marital status: Spouse name: Montrell Years of education: Number of children: 1 Social History Main Topics Smoking status: Former Smoker Packs/day: 0.25 Years: 15.00 Types: Cigarettes Quit date: 07/15/1993 Smokeless tobacco: Former User Quit date: 2017 Alcohol use: Yes 1.5 oz/week Cans of Beer (12oz): 1 per week Drug use: No EXAM: BP 138/88 (BP Site: Right Arm, BP Position: Sitting, BP Cuff Size: Regular Adult) Pulse 72 Wt 88.5 kg (195 lb) SpO2 98% BMI 33.47 kg/m? General Appearance: Well appearing, alert, in no acute distress, well-hydrated, well nourished.. Lungs: Lungs clear to auscultation. No wheezing, rhonchi, rales. Heart: RRR without murmur, gallop, or rubs. No ectopy. Health Maintenance List HEPATITIS C SCREENING due on 1996 FECAL OCCULT BLOOD due on 01/18/2002 DTAP,TDAP,TD(2 - Tdap) due on 11/01/2012 MAMMOGRAM due on 02/27/2018 PNEUMOVAX AGE 65 AND OVER WITH 5YR LOOKBACK(1) due on 06/14/2018 DIABETES SCREEN due on 11/08/2019 LIPID SCREEN due on 12/17/2021 BONE DENSITY Completed ADULT PREVNAR-13 Completed INFLUENZA Completed Data reviewed None ASSESSMENT/PLAN: 1. Anxiety - ICD9: 300.00, ICD10: F41.9 (primary diagnosis) Continue current medications. - LORAZEPAM 0.5 MG TABLET 2. Fibromyalgia - ICD9: 729.1, ICD10: M79.7 3. Hyperlipidemia, unspecified hyperlipidemia type - ICD9: 272.4, ICD10: E78.5 - COMP METABOLIC PANEL - LIPID PANEL BASIC 4. Swelling of both hands - ICD9: 729.81, ICD10: M79.89 Add HCTZ - HYDROCHLOROTHIAZIDE 12.5 MG CAPSULE Follow up in 3 months Daina Geiger MD CNOV Observed: 10/30/2017 Status: COMPLETED Source: [place] 11:00 AM [facility] REPOSITORY Office Visit (FAMPWS) PAM JERRY ([id number]) 1950 F Date Time Provider Department 10/30/17 11:00 AM DAINA GEIGER FAMWS During your visit today, we recorded the following information about you: Pulse Blood pressure Weight 72/minute 138/88 88.5 kg Arin Camarillo LPN 10/30/2017 11:07 AM Signed Patient her for 3 month follow up, anxiety, fibro, lipid. Refill on medication Ativan. Arin Geiger MD 11/03/2017 6:27 PM Signed Chief Complaint Patient presents with: 3 mo follow up anxiety, fibro, lipid HPI Pam Jerry is a 67 year old female who presents here today for follow up. Having some swelling of hands. Trying to watch diet, struggles with losing weight. Anxiety: controlled on Ativan 0.5 mg TID and Cymbalta 60 mg daily. Fibromyalgia: the Cymbalta is helping with the Fibromyalgia. [facility] which does [facility]; has not done this as much recently due to doing more yard work. ? Hyperlipidemia: is taking Lipitor 40 mg daily. Has not smoked for years, but continues to use the Nicotine patches. Past medical history, appointments, medications, allergies reviewed. 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 - Hypercholesterolemia 2014 - Impaired fasting glucose 2014 - Insomnia - Kidney stone - Liver function test abnormality - Multiple nodules of lung All less than 5 mm in size, diagnosed November 2015, suggested 3 month follow-up imaging - Myalgia and myositis, unspecified - Osteopenia - Primary fibromyalgia syndrome - Tobacco dependence - Tubal without intrauterine Previous Surgical History PAST SURGICAL HISTORY Procedure Laterality Date - APPENDECTOMY 1961 - LAP CHOLECYSTECT/CHOLANGIOGRAPHY 04/11/05 - LIGATE FALLOPIAN TUBE TUBAL - REMOVAL SPLEEN, TOTAL 1961 - TOTAL ABDOM HYSTERECTOMY 1998 Family History FAMILY HISTORY Problem Relation Age of Onset - Cancer Mother LUNG - Heart Mother - Heart Maternal Grandfather Patient Allergies ALLERGIES Allergen Reactions - Cats Intolerance ITCHY WATERY EYES AND SUCH - Naprosyn [Naproxen] Swelling - Tramadol GI Upset - Vicodin [Hydrocodon* GI Upset Current Medications Current Outpatient Prescriptions on File Prior to Visit: atorvastatin (LIPITOR) 40 mg tablet Take 1 tablet by mouth once daily. nicotine (NICODERM) 14 mg/24 hr Apply 1 Patch as directed every 24 hours. unsure of dose, #2 duloxetine hcl(CYMBALTA 60 MG CAP) Take one(1) capsule daily. LORazepam (ATIVAN) 0.5 mg tab Take one tablet three time daily as needed. No current facility-administered medications on file prior to visit. Social History Social History Marital status: Spouse name: Montrell Years of education: Number of children: 1 Social History Main Topics Smoking status: Former Smoker Packs/day: 0.25 Years: 15.00 Types: Cigarettes Quit date: 07/15/1993 Smokeless tobacco: Former User Quit date: 2017 Alcohol use: Yes 1.5 oz/week Cans of Beer (12oz): 1 per week Drug use: No EXAM: BP 138/88 (BP Site: Right Arm, BP Position: Sitting, BP Cuff Size: Regular Adult) Pulse 72 Wt 88.5 kg (195 lb) SpO2 98% BMI 33.47 kg/m? General Appearance: Well appearing, alert, in no acute distress, well-hydrated, well nourished.. Lungs: Lungs clear to auscultation. No wheezing, rhonchi, rales. Heart: RRR without murmur, gallop, or rubs. No ectopy. Health Maintenance List HEPATITIS C SCREENING due on 1996 FECAL OCCULT BLOOD due on 01/18/2002 DTAP,TDAP,TD(2 - Tdap) due on 11/01/2012 MAMMOGRAM due on 02/27/2018 PNEUMOVAX AGE 65 AND OVER WITH 5YR LOOKBACK(1) due on 06/14/2018 DIABETES SCREEN due on 11/08/2019 LIPID SCREEN due on 12/17/2021 BONE DENSITY Completed ADULT PREVNAR-13 Completed INFLUENZA Completed Data reviewed None ASSESSMENT/PLAN: 1. Anxiety - ICD9: 300.00, ICD10: F41.9 (primary diagnosis) Continue current medications. - LORAZEPAM 0.5 MG TABLET 2. Fibromyalgia - ICD9: 729.1, ICD10: M79.7 3. Hyperlipidemia, unspecified hyperlipidemia type - ICD9: 272.4, ICD10: E78.5 - COMP METABOLIC PANEL - LIPID PANEL BASIC 4. Swelling of both hands - ICD9: 729.81, ICD10: M79.89 Add HCTZ - HYDROCHLOROTHIAZIDE 12.5 MG CAPSULE Follow up in 3 months Daina Geiger MD Referring Provider: DAINA GEIGER [[id number]] Allergies As of Date: 10/30/2017 Noted Allergy Reaction CATS 03/20/2005 5 - Intolerance Comments: ITCHY WATERY EYES AND SUCH NAPROSYN (NAPROXEN) 03/20/2005 7 - Swelling TRAMADOL 08/22/2009 8 - GI Upset VICODIN (HYDROCODONE-ACETAMINOPHE*03/28/2005 8 - GI Upset Date Reviewed: 10/30/2017 Reviewed by: Arin Camarillo LPN - Fully Assessed Reason for Visit: 3 mo follow up anxiety, fibro, lipid [Other] Primary Visit Diagnosis:Anxiety [F41.9] Other Visit Diagnoses:Fibromyalgia [M79.7] Hyperlipidemia, unspecified hyperlipidemia type [E78.5] Swelling of both hands [M79.89] Order(s):Hydrochlorothiazide 12.5 mg capsuleTake 1 capsule by mouth once daily.Disp: 30 capsuleRfl: 12 COMP METABOLIC PANEL [SQCMP] Order #: [id number] FUTURE LIPID PANEL BASIC [SQLIPB] Order #: [id number] FUTURE LORazepam (ATIVAN) 0.5 mg tabTake one tablet three time daily as needed.Disp: 90 tabletRfl: 2 Prescriptions as of 10/30/2017 Sig: ATORVASTATIN 40 MG TABLET Take 1 tablet by mouth once d* NICOTINE 14 MG/24 HR DAILY TR* Apply 1 Patch as directed sohail* CYMBALTA 60 MG CAPSULE,DELAYE* Take one(1) capsule daily. HYDROCHLOROTHIAZIDE 12.5 MG C* Take 1 capsule by mouth once * LORAZEPAM 0.5 MG TABLET Take one tablet three time da* Problem List As Of Date 10/30/2017 Noted Resolved CHOLECYSTITIS SEE ALSO GALLBLADDER CHRONIC [K*INVALID FOR* Swelling, mass, or lump in chest [R22.2] INVALID FOR*04/17/2017 Unspecified Myalgia and Myositis [OYY8999] S/P splenectomy [Z90.81] INVALID FOR* Fibromyalgia [M79.7] INVALID FOR* Hyperlipidemia [E78.5] INVALID FOR* Anxiety [F41.9] INVALID FOR* Visit Notes: >> Arin Camraillo LPN SatOctober 30, 2017 11:05 AM Status: Signed Patient her for 3 month follow up, anxiety, fibro, lipid. Refill on medication Ativan. Arin Camarillo LPN Prescriptions ordered this encounter Disp Refills Start End HYDROCHLOROTHIAZIDE 12.5 MG CAPSULE 30 c* 12 10/30/2017 Route: ORAL Sig: Take 1 capsule by mouth once daily. LORAZEPAM 0.5 MG TABLET 90 t* 2 10/30/2017 01/26/2018 Class: Print RX Sig: Take one tablet three time daily as needed. Medications Discontinued During This Encounter LORazepam (ATIVAN) 0.5 mg tab 90 t* 2 07/30/2017 10/30/2017 Class: Print RX Sig: Take one tablet three time daily as needed. Disc: Reason for discontinue is not on file. Disposition: Return in about 3 months (around 01/30/2018). Follow-up and Disposition History Recorded Encounter Status:Closed by DAINA GEIGER MD on 11/03/17 FECAL OCCULT BLD Collected: 10/30/2017 Status: F Source: [facility] 9:47 AM [facility] REPOSITORY TYPE CODE TESTS RESULT OUT OF REFERENCE UNITS RANGE LAB IFO Negative Immuno Negative FOB Result Comment: This test was developed and its performance characteristics determined by [facility]'s [facility] Pathology and Laboratory Medicine [place] ([facility] It has not been cleared or approved by the FDA. -[facility] is regulated under CLIA as qualified to perform high-complexity testing. This test is used for clinical purposes. It should not be regarded as investigational or for research. Performed By: #### IFOBT #### [facility] [address], [place] [address] CNPN Observed: 09/05/2017 Status: COMPLETED Source: [place] 12:00 AM [facility] REPOSITORY Telephone (ASWSTR) PAM JERRY ([id number]) 1950 F Date Time Provider Department 09/05/17 DAINA GEIGER ASWSTR During your visit today, we recorded the following information about you: Jenny Nicolas RN, RN 09/05/2017 8:36 AM Signed Pt is overdue for screening colonoscopy. Ok for open access. Please call pt to schedule. CARLOS Hernández 09/11/2017 10:30 AM Signed Spoke with patient she does not want a colonoscopy and has the IFOBT test Zoë Garcia Allergies As of Date: 09/05/2017 Noted Allergy Reaction CATS 03/20/2005 5 - Intolerance Comments: ITCHY WATERY EYES AND SUCH NAPROSYN (NAPROXEN) 03/20/2005 7 - Swelling TRAMADOL 08/22/2009 8 - GI Upset VICODIN (HYDROCODONE-ACETAMINOPHE*03/28/2005 8 - GI Upset Date Reviewed: 07/30/2017 Reviewed by: Yesica Barron Ma - Fully Assessed Reason for Visit: Outpatient Colonoscopy [482] Prescriptions as of 09/05/2017 Sig: LORAZEPAM 0.5 MG TABLET Take one tablet three time da* ATORVASTATIN 40 MG TABLET Take 1 tablet by mouth once d* NICOTINE 14 MG/24 HR DAILY TR* Apply 1 Patch as directed sohail* CYMBALTA 60 MG CAPSULE,DELAYE* Take one(1) capsule daily. Problem List As Of Date 09/05/2017 Noted Resolved CHOLECYSTITIS SEE ALSO GALLBLADDER CHRONIC [K*INVALID FOR* Swelling, mass, or lump in chest [R22.2] INVALID FOR*04/17/2017 Unspecified Myalgia and Myositis [RWT0730] S/P splenectomy [Z90.81] INVALID FOR* Fibromyalgia [M79.7] INVALID FOR* Hyperlipidemia [E78.5] INVALID FOR* Anxiety [F41.9] INVALID FOR* Encounter Status:Closed by ZOË GARCIA on 09/11/17 PROGRESS Observed: 07/30/2017 Status: COMPLETED Source: [place] 10:16 AM [facility] [place] REPOSITORY O ID: [id number] Author: Daina Geiger Service: (none) Author Type: Physician Type: Progress Notes Filed: 07/30/2017 11:13 AM Note Text: Chief Complaint Patient presents with: F/U 3 Month HPI Pam Jerry is a 67 year old female who presents here today for 3 month follow up. Anxiety: controlled on Ativan 0.5 mg TID and Cymbalta 60 mg daily. Denies any counseling. Fibromyalgia: the Cymbalta is helping with the Fibromyalgia. She does not see a [facility]. [facility] which [facility]. Cold, damp weather increases symptoms; was better in [place]. Hyperlipidemia: is taking Lipitor 40 mg daily. She does exercise at [facility] 4 times a week, mainly rides a bike. Has not smoked for years, but continues to use the Nicotine patches. Past medical history, appointments, medications, allergies reviewed. 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 - Hypercholesterolemia 2014 - Impaired fasting glucose 2014 - Insomnia - Kidney stone - Liver function test abnormality - Multiple nodules of lung All less than 5 mm in size, diagnosed November 2015, suggested 3 month follow-up imaging - Myalgia and myositis, unspecified - Osteopenia - Primary fibromyalgia syndrome - Tobacco dependence - Tubal without intrauterine Previous Surgical History PAST SURGICAL HISTORY Procedure Laterality Date - APPENDECTOMY 1961 - LAP CHOLECYSTECT/CHOLANGIOGRAPHY 04/11/05 - LIGATE FALLOPIAN TUBE TUBAL - REMOVAL SPLEEN, TOTAL 1961 - TOTAL ABDOM HYSTERECTOMY 1998 Family History FAMILY HISTORY Problem Relation Age of Onset - Cancer Mother LUNG - Heart Mother - Heart Maternal Grandfather Patient Allergies ALLERGIES Allergen Reactions - Cats Intolerance ITCHY WATERY EYES AND SUCH - Naprosyn [Naproxen] Swelling - Tramadol GI Upset - Vicodin [Hydrocodon* GI Upset Current Medications Current Outpatient Prescriptions on File Prior to Visit: atorvastatin (LIPITOR) 40 mg tablet Take 1 tablet by mouth once daily. LORazepam (ATIVAN) 0.5 mg tab Take one tablet three time daily as needed. nicotine (NICODERM) 14 mg/24 hr Apply 1 Patch as directed every 24 hours. unsure of dose, #2 duloxetine hcl(CYMBALTA 60 MG CAP) Take one(1) capsule daily. No current facility-administered medications on file prior to visit. Social History Social History Marital status: Spouse name: Montrell Years of education: Number of children: 1 Social History Main Topics Smoking status: Former Smoker Packs/day: 0.25 Years: 15.00 Types: Cigarettes Quit date: 07/15/1993 Smokeless status: Former User Quit date: 2017 Alcohol use: Yes 1.5 oz/week 1 Cans of Beer (12oz) per week Drug use: No EXAM: BP 122/70 Pulse 74 Resp 16 Wt 88.9 kg (196 lb) BMI 33.64 kg/m2 General Appearance: Well appearing, alert, in no acute distress, well-hydrated, well nourished.. Lungs: Lungs clear to auscultation. No wheezing, rhonchi, rales. Heart: RRR without murmur, gallop, or rubs. No ectopy. Health Maintenance List HEPATITIS C SCREENING due on 1996 LIPID SCREEN due on 10/17/2007 COLORECTAL CANCER SCREENING,SEE MODIFIER due on 10/06/2011 MAMMOGRAM due on 02/27/2018 PNEUMOVAX AGE 65 AND OVER WITH 5YR LOOKBACK(1) due on 06/14/2018 DIABETES SCREEN due on 11/08/2019 TETANUS due on 06/07/2020 BONE DENSITY Completed ADULT PREVNAR-13 Completed INFLUENZA Completed Data reviewed [facility] website checked and validated. All prescriptions have been APPROPRIATELY filled. No suspicious activity was identified.- 07/30/2017 by Daina Geiger MD ASSESSMENT/PLAN: 1. Fibromyalgia - ICD9: 729.1, ICD10: M79.7 (primary diagnosis) Continue current medications. Continue exercise 2. Anxiety - ICD9: 300.00, ICD10: F41.9 - LORAZEPAM 0.5 MG TABLET 3. Hyperlipidemia, unspecified hyperlipidemia type - ICD9: 272.4, ICD10: E78.5 Check labs in January 04. Screening for colon cancer - ICD9: V76.51, ICD10: Z12.11 Prefers not to have colonoscopy due to difficulty with IV access - FECAL OCCULT BLOOD TEST Follow up in 3 months Daina Geiger MD [facility] Observed: 07/16/2017 Status: COMPLETED Source: [facility] 12:00 AM [facility] REPOSITORY Patient Outreach (INTMWH) PAM JERRY ([id number]) 1950 F Date Time Provider Department 07/16/17 [facility] During your visit today, we recorded the following information about you: Allergies As of Date: 07/16/2017 Noted Allergy Reaction CATS 03/20/2005 5 - Intolerance Comments: ITCHY WATERY EYES AND SUCH NAPROSYN (NAPROXEN) 03/20/2005 7 - Swelling TRAMADOL 08/22/2009 8 - GI Upset VICODIN (HYDROCODONE-ACETAMINOPHE*03/28/2005 8 - GI Upset Date Reviewed: 04/17/2017 Reviewed by: Yesica Barron Ma - Fully Assessed Visit Diagnosis:Medication management [Z79.899] Order(s):HGB A1C [NFQBR3L] Order #: [id number] FUTURE LIPID PANEL, NONFASTING [SQLIPNF] Order #: [id number] FUTURE Prescriptions as of 07/16/2017 Sig: ATORVASTATIN 40 MG TABLET Take 1 tablet by mouth once d* LORAZEPAM 0.5 MG TABLET Take one tablet three time da* NICOTINE 14 MG/24 HR DAILY TR* Apply 1 Patch as directed sohail* CYMBALTA 60 MG CAPSULE,DELAYE* Take one(1) capsule daily. Problem List As Of Date 07/16/2017 Noted Resolved CHOLECYSTITIS SEE ALSO GALLBLADDER CHRONIC [K*INVALID FOR* Swelling, mass, or lump in chest [R22.2] INVALID FOR*04/17/2017 Unspecified Myalgia and Myositis [JYH7715] S/P splenectomy [Z90.81] INVALID FOR* Fibromyalgia [M79.7] INVALID FOR* Hyperlipidemia [E78.5] INVALID FOR* Anxiety [F41.9] INVALID FOR* Encounter Status:Closed by KENROY HERNANDEZ on 07/21/17 ALLERGIES ALLERGIES DATE TYPE / CODE NAME / CODE REACTION SEVERITY SOURCE 05/21/2018 Drug No Known Unknown Marilyn Allergy/416 Allergies/F0019 [facility] 309786(SNOM 23953(RXNORM) [facility] ED CT) Repository 08/22/2009 [facility] 799399(SNOM Repository ED CT) 03/28/2005 DRUG/875260 HYDROCODONE-YUMIKO GI UPSET [facility] 003(SNOMED TAMINOPHEN [place] CT) Repository 03/20/2005 Animal/4201 CATS INTOLERANCE [facility] 61910(SNOME [facility] D CT) Repository 03/20/2005 [facility] 276391(SNOM Repository ED CT) ENCOUNTERS ENCOUNTERS ADMIT/DISCHARGE ACCOUNT ADMITTING ENCOUNTER LOCATION SOURCE NUMBER CLASS 06/17/2018/06/18/19 [id number] Ambulatory [address] [place] Repository 05/21/2018 [id number] Ambulatory Marilyn Sanders [facility] Hospital ing:LABSPEC Repository 05/21/2018/05/21/20 [id number] Ambulatory BMSBuilding:Jean Claude Sanders 20 MS.NOW [facility] Repository 05/02/2018/05/02/20 [id number] Ambulatory [address] [place] Repository 05/01/2018/05/05/20 [id number] Ambulatory [address] [place] Repository 03/05/2018/03/10/20 [id number] Ambulatory [address] [place] Repository 02/26/2018/02/29/20 [id number] Ambulatory [address] [place] Repository 02/19/2018/02/25/20 [id number] Ambulatory [address] Repository 02/05/2018/02/07/20 [id number] Ambulatory [address] [place] Repository 01/24/2018/01/28/20 [id number] Ambulatory [address] Repository 01/15/2018/01/16/20 [id number] Ambulatory [address] [place] Repository 12/01/2017/12/02/19 [id number] Ambulatory BMSBuilding:Jean Claude Sanders 18 MS.NOW [facility] Repository 11/25/2017/11/26/19 [id number] Ambulatory BMSBuilding:Jean Claude Sanders 18 MS.NOW [facility] Repository 10/30/2017/10/31/19 [id number] Ambulatory [address] [place] Repository 10/30/2017/11/05/19 [id number] Ambulatory [address] Repository 07/30/2017/08/03/19 [id number] Ambulatory [address] Repository PAYERS PAYERS ENCOUNTER GUARANTOR PAYER SUBSCRIBER SOURCE 05/21/2018 MONTRELL [id number] Primary PAM [place] Insurance:MEDICARE JONESDOB: [facility] BPolicy [id number] Hospital [address]47[address]Hjg: (330) Number: Repository [phone] (HP) [id number] Date:2018-05-21 05/21/2018 Secondary PAM Sanders Insurance:COMMERCIAL JONESDOB: Community OTHERPolicy Number: [id number] [facility] [id number] Repository Date: YUAN BOWSER [id number]: 05/21/2018 Tertiary NOT GIVENUNK Marilyn Insurance:SELF PAY [facility] Number: Effective Repository Date:2018-05-21 05/21/2018 Montrell Zamora4 Primary PAM JONESDOB: Marilyn [place] Insurance:MEDICARE [id number] [place] [address]Gxl: Number: Repository [id number] (HP) Date:2018-05-21 05/21/2018 Secondary PAM JONESDOB: Marilyn Insurance:COMMERCIAL [id number] [facility] OTHERPolic Number: Hospital [id number] Repository Date:2018-05-21 05/21/2018 Tertiary NOT GIVENUNK [place] Insurance:SELF PAY [facility] Hospital Number: Effective Repository Date:2018-05-21 12/01/2017 Montrell Thrasher Primary PAM CLARITZADOB: [place] Insurance:MEDICARE [id number] [place] [address]Iem: Number: Repository [id number] (HP) Date:2017-12-01 12/01/2017 Secondary PAM JONESDOB: Marilyn Insurance:COMMERCIAL [id number] [facility] OTHERPolicy Number: [facility] [id number] Repository Date:2017-12-01 12/01/2017 Tertiary NOT GIVENUNK Marilyn Insurance:SELF PAY [facility] Hospital Number: Effective Repository Date:2017-12-01 11/25/2017 Montrell Zamora4 Primary PAM JONESDOB: Marilyn [place] Insurance:MEDICARE [id number] [place] [address]Jes: Number: Repository [id number] (HP) Date:2017-11-25 11/25/2017 Secondary PAM JONESDOB: [place] Insurance:COMMERCIAL [id number] [facility] OTHERPolicy Number: [facility] [id number] Repository Date:2017-11-25 11/25/2017 Tertiary NOT GIVENUNK Marilyn Insurance:SELF PAY [facility]: Effective Repository Date:2017-11-25
== END ==
PROVIDERS: Family Provider Internal Medicine; PCP Internal Medicine; Referring Provider Physician Assistant; Visit Provider Physician Assistant
DX: J02.9 Acute pharyngitis, unspecified (principal)
CPT/HCPCS: 87081

== ENCOUNTER → 2018-08-22 08:18 | Outpatient (CLI) | payer MEDICARE, OTHER, SELFPAY ==
[2018-05-21 06:54] VITALS: BMI 28.3
--- NOTE | 2018-08-22 15:00 | FLU_PTH ---
PATIENT: TORI JERRY LOC: [facility] U#:[id number] AGE/SX: 75/F ROOM: RE08/22/[address]: Dr. Hailey Taylor MD : 1950 BED: DIS: SPEC #: [id number] RECD: 08/22/18 17:00 STATUS: MARY LOU TRICIA #: [id number] ALEJANDRA: 08/22/18 15:[address]: Hailey Taylor DEPT: CYTOLOGY RECD BY: Damon Calle ENTERED: 08/25/18 12:37 SP TYPE: Fluid OTHR DR: Dr. Toya Zuleta MD Tissues: A - Thyroid gland, NOS B - Thyroid gland, NOS Procedures: Special Stain Group II Surgery Specimen Level IV Cytospin Fluid Cytology Other HEADER OPERATION: Ultrasound-guided fine needle aspiration left thyroid PRE-OP DIAGNOSIS: Left thyroid nodule TISSUE SUBMITTED: A - FNA left thyroid fluid for cytology, B - FNA left thyroid slides x8 DIAGNOSIS CYTOLOGY A. Left thyroid nodule fluid for cytology, FNA (cytospin and cell block): Consistent with benign colloid nodule. See cytology study and comment. B. Left thyroid nodule, FNA (smears): Consistent with benign colloid nodule. See cytology study and comment. SJ:rg 08/26/18 COMMENT A & B. The specimen is adequate for evaluation. Correlation with clinical, radiologic findings and appropriate follow up are necessary. CYTOLOGY STUDY Slides are reviewed. A. The specimen consists of benign follicular cells and colloid. B. The specimen consists of abundant colloid and a few clusters of benign follicular cells. CYTOLOGY GROSS A - Received is 20 ml of brown cloudy fluid labeled with the patient's name and and designated per the requisition as left thyroid. Submitted for cytology preparation including cell block. B - Received are eight smears labeled with the patient's name and designated per the requisition as left thyroid. Submitted for staining. / 08/25/18 TC:5 CPT: 42290, 12028, 62890
== END ==
PROVIDERS: Family Provider Internal Medicine; PCP Internal Medicine; Referring Provider Surgery; Visit Provider Surgery
DX: E04.1 Nontoxic single thyroid nodule (principal)
CPT/HCPCS: 88108; 88161; 88305; 88313

== ENCOUNTER 2019-02-03 07:39 | Emergency (ER) | payer MEDICARE, OTHER, SELFPAY ==
[2019-01-19 08:46] VITALS: BMI 28.3
[2019-02-03 07:40] VITALS: BP 133/81; PULSE 87; RESP 20; TEMP 37; O2SAT 90; BMI 33.1
--- NOTE | 2019-02-03 07:56 | ED.DCSUM_ITS ---
History of Present Illness Chief Complaint: Fever Informant: Patient Onset: Days Context: Gradual Onset Timing: Continuous Current Severity: Moderate Maximum Severity: Moderate Narrative: The patient presents to the emergency department with cough, shortness of breath, generalized malaise. She states her symptoms began about 4 days ago. She states she had a scant cough. Since then, she is been having fevers, chills, myalgias. She describes a mild headache and pressure in her head. She denies any chest pain. The patient has no history of cardiovascular disease. She does not smoke. 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 She is unsure which vaccinations that she is had. She denies any recent travel. She denies any recent sick contacts. Prior similar symptoms: No Recent Illness/Hospitalization: No Past Medical History - Allergies and Home Meds Allergies/Adverse Reactions: Allergies No Known Allergies Allergy (Verified 02/03/19 07:43) Primary Care Physician: Toya Zuleta MD [STAFF PHYSICIAN] - Prior records reviewed: Yes Past Medical History: - Surgical History: - - splenectomy Smoking Status: Never smoker Review of Systems General: Reports: Chills, Fever. Denies: Sweats Eyes: Denies: Visual changes - bilaterally, Diplopia ENT: Denies: Rhinorrhea, Sore throat Cardiovascular: Denies: Chest pain, Palpitations Respiratory: Reports: Cough. Denies: Dyspnea, Dyspnea on exertion Gastrointestinal: Denies: Abdominal pain, Nausea, Vomiting, Diarrhea, Melena, Hematochezia Genitourinary: Denies: Dysuria, Hematuria, Frequency Musculoskeletal: Reports: Myalgias, Arthralgias. Denies: Back pain, Extremity Pain Skin: Denies: Rash, Wounds Neurological: Denies: Headache, Weakness, Numbness Physical Exam Vital Signs/Narrative: Vital Signs Temp Pulse Resp BP Pulse Ox 02/03/19 07:40 98.6 F 87 20 H 133/81 H 90 Diagnostic/Tx/Re-eval Chest X-Ray - ED: 2 View, Read by ED Physician, Normal, Heart, Mediastinum, Left Infiltrate Clinical Impression(s) from Imaging Studies Chest X-Ray 02/03/19 08:48 IMPRESSION: Lingular infiltrate. Electronically Signed: Toño Looney, at 9:28 EDT , Service support , Abnormal Lab Results 02/03/19 02/03/19 02/03/19 08:07 08:07 08:07 WBC 8.5 RBC 4.43 Hgb 13.1 Hct 39.7 MCV 89.6 MCH 29.6 MCHC 33.0 RDW Std Deviation 51.1 H RDW Coeff of Fabian 15.5 H Plt Count 315 MPV 10.2 Immature Gran % (Auto) 0.400 Neut % (Auto) 51.1 Lymph % (Auto) 30.8 [place] % (Auto) 15.9 H Eos % (Auto) 0.5 Baso % (Auto) 1.3 H Absolute Neuts (auto) 4.4 Absolute Lymphs (auto) 2.63 Nucleated RBC % 0 Sodium 137 Potassium 3.5 Chloride 106 Carbon Dioxide 25.0 Anion Gap 6 BUN 15 Creatinine 0.74 Estim Creat Clear Calc 47.14 Est GFR (MDRD) Af Amer 102 Est GFR (MDRD) Non-Af 84 BUN/Creatinine Ratio 20.4 H Glucose 111 H Lactic Acid 0.8 Calcium 8.4 L Total Bilirubin 0.20 AST 36 ALT 40 Alkaline Phosphatase 110 Total Protein 7.7 Albumin 3.4 Globulin 4.3 H Albumin/Globulin Ratio 0.8 L - Rhythm Strip Rhythm Strip: Sinus Rhythm Rate: 80 Ectopy: None - Medical Decision Making The patient presents with cough and fever. She does have focal change in lung sounds in her left mid lobe. X-ray does show early lingular pneumonia. Screening labs obtained and are unremarkable. The patient does not have a significant leukocytosis. Her lactic is normal. She is not tachypneic or tachycardic. I did discuss options with the patient. At this point, based on her pneumonia severity index I do feel that she is safe for outpatient therapy. I am going to double cover her as she is status post splenectomy with Augmentin and doxycycline. She is given her first dose here. The patient was counseled on concerning symptoms and reasons to return. She will be discharged home. Impression 1. Left lingular community-acquired pneumonia ED Disposition - Plan for ED Patient: Instructions: PNEUMONIA (Adult) Prescriptions: Amox/Clavulanate Tablet [Augmentin Tablet] 875 mg PO Q12H #20 tab Prescription Printed Doxycycline 100 mg PO BID #20 cap Prescription Printed Referrals: Toya Zultea MD [STAFF PHYSICIAN] -
[2019-02-03] MEDS: Albuterol 2.5 MG/3 ML VIAL.NEB. INHALATION ×2 (08:14)
[2019-02-03] MEDS: Ipratropium/Albuterol Sulfate 3 ML AMPUL.NEB INHALATION (08:14)
[2019-02-03 08:18] VITALS: PULSE 92; RESP 18
[2019-02-03 08:19] LABS: Absolute Lymphocyte Count 2.63 X10^3/uL (0.83-4.51); Absolute Neutrophil Count 4.4 X10^3/uL (2.0-7.7); Basophil# 0.11 X10^3/uL; Basophil% 1.3 % (0-1); Eosinophil# 0.04 X10^3/uL; Eosinophils% 0.5 % (0-5); Hematocrit 39.7 % (37-47); Hemoglobin 13.1 g/dL (12.0-15.0); Lymphocyte # 2.63 X10^3/ul (4.0); Lymphocyte % 30.8 % (19-41); Mean Corpuscular Hgb 29.6 pg (27.0-32.0); Mean Corpuscular Volume 89.6 fL (81-99); Mean Platelet Vol. 10.2 fl (6.2-12.0); Monocyte# 1.36 X10^3/uL; Monocyte% 15.9 % (0-10); NRBC Flagged by Analyzer 0 % (0-5); Neutrophil # 4.37 X10^3/uL (2.7-7.7); Neutrophil % 51.1 % (47-70); Platelet Count 315 K/mm3 (150-450); RBC Distribution Width CV 15.5 % (11.6-14.6); RBC Distribution Width SD 51.1 fl (35.1-43.9); Red Blood Count 4.43 M/mm3 (4.2-5.4); White Blood Count 8.5 K/mm3 (4.4-11.0)
[2019-02-03 08:39] LABS: ALB/GLOB Ratio 0.8 RATIO (0.9-2.4); AST(SGOT) 36 U/L (15-37); Alanine Aminotransfer ALT/SGPT 40 U/L (13-56); Albumin, Serum 3.4 g/dL (3.2-5.0); Alkaline Phosphatase 110 U/L (45-117); Anion Gap 6 (5-15); BUN 15 mg/dL (7-18); BUN/Creat Ratio 20.4 RATIO (10-20); Calcium,Total 8.4 mg/dL (8.5-10.1); Chloride 106 mmol/L (98-107); Creatinine, Serum 0.74 mg/dL (0.55-1.02); EST Glomerular Filtration Rate 84 mL/min (>60); Est Glom Filt Rate - Afr Amer 102 mL/min (>60); Estimated Creatinine Clearance 47.14 ml/min; Globulin 4.3 g/dL (2.2-4.2); Glucose 111 mg/dL (74-106); Potassium 3.5 mmol/L (3.5-5.1); Protein, Total 7.7 g/dL (6.4-8.2); Sodium Level 137 mmol/L (136-145)
[2019-02-03] MEDS: Acetaminophen 500 MG Tablet 1000 MG PO (08:40)
[2019-02-03] MEDS: 0.9% Normal Saline 1,000 ML 1000 ML IV (08:40)
[2019-02-03 08:44] VITALS: BP 150/59; PULSE 87; RESP 19; TEMP 37.2; O2SAT 95
--- NOTE | 2019-02-03 08:48 | RAD_ITS ---
STUDY: X-RAY CHEST REASON FOR EXAM: Female, 69 years old. Cough, chest congestion and fever. TECHNIQUE: PA and lateral views of the chest. COMPARISON: None. FINDINGS: EKG electrodes are seen. Increased markings with a relative confluence in the lingular segment of the left upper lobe suggestive of an early lingular infiltrate. There is no demonstrated pleural abnormality. Normal size heart. Normal mediastinum and angela. Normal visualized pulmonary arteries. There is atherosclerotic tortuosity of the aortic arch and descending thoracic aorta. There are mild degenerative changes of the visualized thoracic spine. Normal visualized ribs, clavicles, and shoulders. There is no demonstrated abnormality of the visualized soft tissue structures of the upper abdomen. RAD/Chest PA and Lateral IMPRESSION: Lingular infiltrate. Electronically Signed: Toño Looney, at 9:28 EDT , Service support ,
[2019-02-03 09:04] LABS: Lactic Acid 0.8 mmol/L (0.4-2.0)
[2019-02-03 09:34] LABS: Mucous, Urine 0 SEEN /hpf (<or=2+); Red Blood Cells-Urine 0 SEEN /hpf (0-5)
[2019-02-03 09:37] LABS: Color, Urine Yellow (Yellow); Glucose, Dipstick Normal (Normal); Ketone-Dipstick 15 mg/dl (Negative); Leukocyte Esterase-Dipstick 100 /ul (Negative); Nitrite-Dipstick Negative (Negative); Occult Blood-Urine 50 /ul (Negative); Protein-Dipstick Negative (Negative); Urine Bilirubin Dipstick Negative (Negative); Urine Clarity Clear (Clear); Urine Urobilinogen Normal (Normal); Urine pH 6.5 (5.0 - 8.0)
[2019-02-03 09:45] LABS: Bacteria RARE /hpf (None Seen); Squamous Epithelial Cells - UA 0-5 SEEN /hpf (5-10); White Blood Cells 0-5 SEEN /hpf (0-5)
[2019-02-03] MEDS: Doxycycline 100 MG CAPSULE PO (09:53)
[2019-02-03] MEDS: Ketorolac 15 MG/ML Vial IV (09:53)
[2019-02-03] MEDS: Amox/Clavulanate 875 MG Tablet PO (09:53)
[2019-02-03 09:57] VITALS: BP 159/81; PULSE 80; RESP 15; TEMP 37.3; O2SAT 95
== END 2019-02-03 10:03 | disposition home or self-care (01) ==
PROVIDERS: Emergency Provider Emergency Medicine; Family Provider Student in an Organized Health Care Education/Training Program; PCP Student in an Organized Health Care Education/Training Program
DX: J18.9 Pneumonia, unspecified organism (principal)
CPT/HCPCS: 71046; 80053; 81001; 83605; 85025; 94640; 96361; 96374; 99285; J7030; A4216

== ENCOUNTER 2019-09-17 09:00 | Emergency (ER) | payer MEDICARE, OTHER, SELFPAY ==
[2019-09-17 09:01] VITALS: BP 164/100; PULSE 97; RESP 17; TEMP 36.8; O2SAT 96; BMI 36.2
--- NOTE | 2019-09-17 09:29 | CT_ITS ---
STUDY: CT ABDOMEN AND PELVIS WITHOUT CONTRAST REASON FOR EXAM: Female, 69 years old. LLQ PAIN, EMESIS X 1 RADIATION DOSAGE (If Supplied By Facility): CTDIvol = ( 19.97 ) mGy, DLP = ( 996.75 ) mGycm TECHNIQUE: Transaxial images were obtained from the dome of the diaphragm to the symphysis pubis without oral contrast, and without intravenous contrast. Sagittal and coronal images were reconstructed. Individualized dose optimization techniques were used for this CT. COMPARISON: None. FINDINGS: The visualized lung bases are unremarkable. The visualized portions of the heart are within normal limits. Normal liver. There are surgical clips in the gallbladder fossa consistent with a prior cholecystectomy. Normal pancreas. The spleen is absent. There is a small, circumscribed, smooth, low attenuation left adrenal mass, consistent with an adrenal adenoma. Normal right adrenal gland. Normal right kidney. There is moderate left-sided hydronephrosis and hydroureter due to the presence of 3 mm stone in the distal end of the left ureter at ureterovesical junction. There is a left renal cyst measures 2.2 cm. Normal visualized stomach. Normal small intestine. Normal colon. There is non-visualization of the appendix. Normal abdominal aorta. Normal inferior vena cava. Normal retroperitoneum. Normal urinary bladder. Normal abdominal wall. There are diffuse degenerative changes of the visualized lumbar spine. CT/Abdomen/Pelvis W IV Cont ONLY IMPRESSION: There is moderate left-sided hydronephrosis and hydroureter due to the presence of 3 mm stone in the distal end of the left ureter at ureterovesical junction. Electronically Signed: Uvaldo Simpson, at 10:44 EDT Tel , Service support ,
--- NOTE | 2019-09-17 09:32 | ED.DCSUM_ITS ---
- ER Visit Summary Date of Service: 09/17/19 Chief Complaint: Left lower quadrant abdominal pain History of Present Illness: The patient is a [address] of prior splenectomy, fibromyalgia, high cholesterol, appendectomy, hysterectomy and cholecystectomy. Patient states this morning she has had left lower quadrant abdominal pain. Associated with nausea and vomiting x1. Denies any fever or chills. No dysuria but seems like she is having trouble urinating. She did have a bowel movement today. No diarrhea. No constipation. No melena. States she is never had pain like this before. Denies any trauma. Physical Examination: Older female no acute distress vital signs are stable afebrile. H EENT exam unremarkable. Neck nontender no lymphadenopathy. Lungs clear to auscultation bilaterally. Extremities moves all 4. Neurovascular intact. No edema. Abdominal exam she has well-healed midline upper abdominal incision. That is from a prior surgery years ago. She is nondistended. There is no peritoneal signs. She has mild left lower quadrant tenderness. The upper quadrants and right lower quadrants are unremarkable. There is no obvious hernia or mass. No pulsatile mass. The abdomen is soft with bowel sounds. Neurologically she is awake and alert with no focal motor deficits. Test Results: CBC white count of 14. Hemoglobin 14. Chemistries unremarkable normal creatinine and gap. UA did not have enough urine to do the micro but the macro showed 250 occult blood. No nitrites. CT scan of her flank shows a left distal 3 mm ureteral calculi just above the bladder with hydroureter and hydronephrosis. Read by the radiologist and reviewed by me. The scans consistent with a distal kidney stone and her symptoms. Emergency Department Course and Treatment: Patient is left lower quadrant a bdominal pain diverticulitis is in the differential diagnosis along with possible UTI versus other etiologies. At this time the patient does not want anything for pain or nausea. Labs and CAT scan are being obtained. Patient developed more pain was treated with IV morphine and Zofran. Received a second dose of morphine. Stated her pain was not getting better and eventually received 1 mg of Dilaudid. Currently she is resting comfortably but is pretty sedated from the pain medication will be observed for period of time. Treatment Plan: [place] for pain. Fluids. Rest. Strain urine. Follow-up if not improving. Return if worse. Disposition: Discharge Impression: Acute left lower quadrant abdominal pain secondary to distal 3 mm ureteral calculi with hydroureter This note was generated with [employer] dictation software. It may contain incorrect words, spelling, and punctuation that were not noted in review of the chart prior to signing ED Disposition - Plan for ED Patient: Referrals: Asa Peters [Primary Care Provider] -
[2019-09-17 09:58] LABS: Absolute Lymphocyte Count 4.03 X10^3/uL (0.83-4.51); Absolute Neutrophil Count 8.5 X10^3/uL (2.0-7.7); Basophil# 0.15 X10^3/uL; Basophil% 1.1 % (0-1); Eosinophils% 2.1 % (0-5); Lymphocyte # 4.03 X10^3/ul (4.0); Lymphocyte % 28.7 % (19-41); Mean Corp Hgb Conc 31.8 g/dL (32-36); Mean Corpuscular Volume 91.3 fL (81-99); Mean Platelet Vol. 10.2 fl (6.2-12.0); Monocyte# 1.07 X10^3/uL; Monocyte% 7.6 % (0-10); NRBC Flagged by Analyzer 0 % (0-5); Neutrophil # 8.45 X10^3/uL (2.7-7.7); Neutrophil % 60.1 % (47-70); Platelet Count 392 K/mm3 (150-450); RBC Distribution Width CV 15.8 % (11.6-14.6); RBC Distribution Width SD 52.7 fl (35.1-43.9); Red Blood Count 4.82 M/mm3 (4.2-5.4); White Blood Count 14.1 K/mm3 (4.4-11.0)
[2019-09-17] MEDS: Ondansetron 4 MG/2 ML Vial IV (10:00)
[2019-09-17] MEDS: Morphine 4 MG/ML Syringe IV (10:00)
[2019-09-17 10:01] LABS: Glucose, Dipstick Normal (Normal); Ketone-Dipstick 5 mg/dl (Negative); Leukocyte Esterase-Dipstick 100 /ul (Negative); Nitrite-Dipstick Negative (Negative); Occult Blood-Urine 250 /ul (Negative); Protein-Dipstick 30 mg/dl (Negative); Specific Gravity, Urine 1.025 (1.002-1.030); Urine Bilirubin Dipstick Negative (Negative); Urine Urobilinogen 1 mg/dl (Normal)
[2019-09-17 10:04] LABS: Color, Urine YELLOW (Yellow); Urine Clarity Sl Cldy (Clear)
[2019-09-17 10:12] LABS: Anion Gap 8 (5-15); BUN 23 mg/dL (7-18); BUN/Creat Ratio 24.5 RATIO (10-20); Calcium,Total 9.7 mg/dL (8.5-10.1); Chloride 108 mmol/L (98-107); Creatinine, Serum 0.94 mg/dL (0.55-1.02); EST Glomerular Filtration Rate 63 mL/min (>60); Est Glom Filt Rate - Afr Amer 76 mL/min (>60); Estimated Creatinine Clearance 50.15 ml/min; Glucose 123 mg/dL (74-106); Potassium 5.1 mmol/L (3.5-5.1); Sodium Level 142 mmol/L (136-145)
[2019-09-17] MEDS: morphine 8 MG/ML Syringe 6 MG IV (10:46)
[2019-09-17 11:09] VITALS: BP 189/91; PULSE 73; RESP 20; O2SAT 99
[2019-09-17] MEDS: HYDROmorphone 1 MG/ML Syringe IV (11:12)
--- NOTE | 2019-09-17 11:58 | ED.RN ---
THIS RN REASSESSED PT'S PAIN LEVEL AND CHECKED PT'S HR AND SPO2. PT'S SPO2 LEVEL WAS 87%, PT'S PLACED ON [address] JAMISON MADE AWARE.
--- NOTE | 2019-09-17 11:59 | ED.DEP ---
ED Disposition - Plan for ED Patient: Disposition: Home or Assisted Living Instructions: ED Renal Stone w Colic Prescriptions: Hydrocodone Bitart/Apap 5-325 [[place] 5MG-325MG] 1 - 2 tab PO Q4H PRN PRN 3 Days #14 tab PRN Reason: Pain Prescription Printed Referrals: Asa Peters [Primary Care Provider] - 3-5 Days if not improving Additional Instructions: Plenty of fluids and rest. [place] for pain. Plenty of fluids, stool softener and fiber to prevent constipation. Strain urine for stone. Follow-up if not improving or return if feeling a lot worse. This is a 3 mm kidney stone and should pass.
[2019-09-17 12:50] VITALS: PULSE 77; RESP 12; O2SAT 93
[2019-09-17 15:24] VITALS: PULSE 87; RESP 16; O2SAT 99
--- NOTE | 2019-09-17 15:24 | ED.RN ---
ATTEMPTED TO WALK PT, PT WAS UNSTEADY WITH ATTEMPTING TO WALK TO DOOR. PT HELPED BACK TO BED. PT IS CURRENTLY WAITING FOR EFFECTS OF PAIN MEDICATION TO WEAR OFF TO BE SAFELY D/C HOME.
[2019-09-17 17:12] VITALS: BP 173/76; PULSE 87; RESP 18; TEMP 36.1
[2019-09-17 17:13] VITALS: BP 173/76; PULSE 87; RESP 18; O2SAT 97
== END 2019-09-17 17:14 | disposition home or self-care (01) ==
PROVIDERS: Emergency Provider Emergency Medicine; PCP Student in an Organized Health Care Education/Training Program
DX: N20.2 Calculus of kidney with calculus of ureter (principal); E78.00 Pure hypercholesterolemia, unspecified; M79.7 Fibromyalgia
CPT/HCPCS: 74177; 80048; 81002; 85025; 96365; 96367; 96375; 99284; Q9967; A4216; J2405

== ENCOUNTER 2019-09-19 07:04 | Emergency (ER) | payer MEDICARE, OTHER, SELFPAY ==
[2019-09-19 07:05] VITALS: BP 191/88; PULSE 75; RESP 16; TEMP 36.4; O2SAT 95; BMI 34.5
--- NOTE | 2019-09-19 07:15 | ED.VIS.GEN ---
History of Present Illness Chief Complaint: Flank Pain Informant: Patient Onset: Days Context: Gradual Onset Timing: Waxes and wanes Current Severity: Moderate Maximum Severity: Moderate Narrative: Patient returns secondary to continued left flank pain. She was seen in the ER on the and diagnosed with a 3 mm stone left UVJ. She was given [place] for pain at home. Patient states she continues to have pain and has not been able to urinate since last evening. She states she has the urge to urinate but cannot pass urine. She did have some nausea prior to arrival. She reports taking [place] with some Tylenol as well. - Past Medical History (1) High cholesterol Status: Chronic (2) Fibromyalgia Status: Chronic (3) Kidney stone Status: Chronic Past Medical History - Allergies and Home Meds Allergies/Adverse Reactions: Allergies No Known Allergies Allergy (Verified 09/19/19 07:07) Primary Care Physician: Asa Peters [Primary Care Provider] - Prior records reviewed: Yes Surgical History: appendectomy, cholecystectomy, hysterectomy, - - splenectomy Smoking Status: Former smoker Review of Systems General: Denies: Chills, Fever Eyes: Denies: Visual changes - bilaterally ENT: Denies: Bilateral ear pain Cardiovascular: Denies: Chest pain Respiratory: Denies: Dyspnea, Cough Gastrointestinal: Reports: Abdominal pain, Nausea. Denies: Vomiting, Diarrhea Genitourinary: Denies: Dysuria Musculoskeletal: Reports: Back pain - Left flank pain Skin: Denies: Rash Neurological: Denies: Headache Hematologic: Denies: Easy bruising, Easy bleeding Allergy: Denies: Uticaria Physical Exam Vital Signs/Narrative: Vital Signs Temp Pulse Resp BP Pulse Ox 09/19/19 07:05 97.6 F L 75 16 191/88 H 95 Inital Vital Signs reviewed: Yes General: Well nourished, Well developed Head: Normocephalic ENT: Moist mucous membranes Neck: Supple Cardiovascular: Regular rate, Regular rhythm Respiratory: No distress, CTA bilaterally Abdomen: Soft, Nontender Back: CVA tenderness - Mild left CVA tenderness Extremities: Nontender Skin: Normal color, No rash Neurological: Alert, Oriented x3 Psychological: Normal affect Diagnostic/Tx/Re-eval Laboratory Results 09/19/19 09/19/19 07:40 09:15 Sodium 139 Potassium 4.2 Chloride 108 H Carbon Dioxide 23.0 Anion Gap 8 BUN 16 Creatinine 0.87 Estim Creat Clear Calc 51.91 Est GFR (MDRD) Af Amer 83 Est GFR (MDRD) Non-Af 69 BUN/Creatinine Ratio 18.4 Glucose 147 H Calcium 9.7 Urine Color Yellow Urine Clarity Cloudy Urine pH 5.0 Ur Specific Roland 1.025 Urine Protein 30 H Urine Glucose (UA) Normal Urine Ketones 5 H Urine Occult Blood 25 H Urine Nitrite Negative Urine Bilirubin Negative Urine Urobilinogen 1 H Ur Leukocyte Esterase 500 H Urine RBC 0-5 SEEN Urine WBC 10-25 SEEN Ur Squamous Epith Cells 25-50 SEEN Ur Transition Epith Cell 0-5 SEEN Calcium Oxalate Crystal 3+ Urine Bacteria 2+ Urine Mucus 4+ - Medical Decision Making Patient was given morphine, Toradol, Zofran, and IV fluids. She was given a dose of Flomax. Bladder scan was performed and she only had 21 cc of urine in her bladder on arrival. Urine sample was able to be given. She only has 5 ketones. She does have white cells, however has significant epithelial cells. I do not believe this represents acute infection. At this time patient's pain is significantly improved. She will be given prescription for Toradol as well as Flomax. She has [place] at home to take. She will be referred to Dr. Solo for follow-up if not improving. ED Disposition - Plan for ED Patient: Disposition: Home or Assisted Living Diagnosis: Kidney stone Instructions: ED Renal Stone w Colic Prescriptions: Tamsulosin HCl [Flomax] 0.4 mg PO DAILY #7 capsule Ketorolac [Toradol] 10 mg PO Q6H PRN #10 tablet PRN Reason: Pain Score 6-10/10 Referrals: Benito Solo MD [STAFF PHYSICIAN] - 3-5 Days if not improving
[2019-09-19] MEDS: Ondansetron 4 MG/2 ML Vial IV (07:36)
[2019-09-19] MEDS: Morphine 4 MG/ML Syringe IV (07:36)
[2019-09-19] MEDS: Ketorolac 30 MG/ML Syringe IV (07:36)
[2019-09-19 08:10] LABS: Anion Gap 8 (5-15); BUN 16 mg/dL (7-18); BUN/Creat Ratio 18.4 RATIO (10-20); Calcium,Total 9.7 mg/dL (8.5-10.1); Chloride 108 mmol/L (98-107); Creatinine, Serum 0.87 mg/dL (0.55-1.02); EST Glomerular Filtration Rate 69 mL/min (>60); Est Glom Filt Rate - Afr Amer 83 mL/min (>60); Estimated Creatinine Clearance 51.91 ml/min; Glucose 147 mg/dL (74-106); Potassium 4.2 mmol/L (3.5-5.1); Sodium Level 139 mmol/L (136-145)
[2019-09-19] MEDS: Tamsulosin HCl 0.4 MG Capsule PO (08:58)
[2019-09-19 09:19] VITALS: BP 170/46; PULSE 64; RESP 18; TEMP 36.4; O2SAT 95
[2019-09-19 09:28] LABS: Color, Urine Yellow (Yellow); Glucose, Dipstick Normal (Normal); Ketone-Dipstick 5 mg/dl (Negative); Leukocyte Esterase-Dipstick 500 /ul (Negative); Nitrite-Dipstick Negative (Negative); Occult Blood-Urine 25 /ul (Negative); Protein-Dipstick 30 mg/dl (Negative); Specific Gravity, Urine 1.025 (1.002-1.030); Urine Bilirubin Dipstick Negative (Negative); Urine Clarity Cloudy (Clear); Urine Urobilinogen 1 mg/dl (Normal)
[2019-09-19 09:38] LABS: Bacteria 2+ /hpf (None Seen); Calcium Oxalate Crystals Ur 3+ /hpf (<or=2+); Mucous, Urine 4+ /hpf (<or=2+); Red Blood Cells-Urine 0-5 SEEN /hpf (0-5); Squamous Epithelial Cells - UA 25-50 SEEN /hpf (5-10); Transitional Epithelial - Ur 0-5 SEEN /hpf (0-5); White Blood Cells 10-25 SEEN /hpf (0-5)
== END 2019-09-19 10:10 | disposition home or self-care (01) ==
PROVIDERS: Emergency Provider Emergency Medicine; PCP Student in an Organized Health Care Education/Training Program
DX: N20.0 Calculus of kidney (principal); E78.00 Pure hypercholesterolemia, unspecified; M79.7 Fibromyalgia; Z87.442 Personal history of urinary calculi; Z87.891 Personal history of nicotine dependence
CPT/HCPCS: 80048; 81001; 96365; 96368; 96375; 99285; J7030; A4216; J2405

== ENCOUNTER → 2024-09-22 | Outpatient (CLI) | payer MEDICARE, OTHER, SELFPAY ==
[2024-09-22 11:23] LABS: EXAGEN MAILED SPECIMEN
== END | disposition home or self-care (01) ==
LOC: MTLAB 10:16
PROVIDERS: PCP Student in an Organized Health Care Education/Training Program; Referring Provider Internal Medicine Rheumatology; Visit Provider Internal Medicine Rheumatology
DX: M06.4 Inflammatory polyarthropathy (principal); R76.8 Other specified abnormal immunological findings in serum; M79.7 Fibromyalgia; R51.9 Headache, unspecified
CPT/HCPCS: 36415; 80053; 81002; 82570; 84156; 86706; 86803; 87350

== ENCOUNTER → 2024-09-23 | Outpatient (CLI) | payer MEDICARE, OTHER, SELFPAY ==
[2024-09-23 12:27] LABS: Absolute Neutrophil Count 4.5 X10^3/uL (2.0-7.7); Basophil# 0.17 X10^3/uL; Basophil% 1.5 % (0-1); Eosinophils% 7.9 % (0-5); Lymphocyte % 43.9 % (19-41); Mean Corp Hgb Conc 32.5 g/dL (32-36); Mean Corpuscular Hgb 29.8 pg (27.0-32.0); Mean Corpuscular Volume 91.7 fL (81-99); Mean Platelet Vol. 10.4 fl (6.2-12.0); NRBC Flagged by Analyzer 0 % (0-5); Neutrophil # 4.51 X10^3/uL (2.7-7.7); Neutrophil % 39.5 % (47-70); Platelet Count 413 K/mm3 (150-450); RBC Distribution Width CV 15.4 % (11.6-14.6); RBC Distribution Width SD 51.5 fl (35.1-43.9); Red Blood Count 4.36 M/mm3 (4.2-5.4); White Blood Count 11.4 K/mm3 (4.4-11.0)
[2024-09-23 13:24] LABS: Protein, Urine (Random) < 6.0 mg/dL (0.0-12.0); Protein:Creat Ratio 227 mg/g CRE (0-200)
[2024-09-23 13:51] LABS: ALB/GLOB Ratio 1.4 RATIO (0.9-2.4); AST(SGOT) 27 U/L (<=31); Alanine Aminotransfer ALT/SGPT 28 U/L (<=34); Albumin, Serum 4.3 g/dL (3.4-4.8); Alkaline Phosphatase 136 U/L (35-104); Anion Gap 15 (5-15); BUN 9 mg/dL (4-19); BUN/Creat Ratio 12.6 RATIO (10-20); Calcium,Total 9.7 mg/dL (7.6-11.0); Chloride 104 mmol/L (98-108); Creatinine, Serum 0.73 mg/dL (0.70-1.20); EST Glomerular Filtration Rate 87 (>60); Glucose 91 mg/dL (70-99); Hepatitis B Surface Antibody Nonreactive; Hepatitis B Surface Antigen Nonreactive (Nonreactive); Hepatitis C Antibody Nonreactive (Nonreactive); Potassium 4.4 mmol/L (3.3-5.1); Protein, Total 7.4 g/dL (5.9-8.4); Sodium Level 137 mmol/L (133-145); Total Bilirubin 0.46 mg/dL (0.00-1.30)
[2024-09-24 15:53] LABS: Color, Urine Yellow (Yellow); Glucose, Dipstick Normal (Normal); Ketone-Dipstick Negative (Negative); Leukocyte Esterase-Dipstick Negative /ul (Negative); Nitrite-Dipstick Negative (Negative); Occult Blood-Urine Negative /ul (Negative); Protein-Dipstick Negative (Negative); Specific Gravity, Urine 1.015 (1.002-1.030); Urine Bilirubin Dipstick Negative (Negative); Urine Clarity Clear (Clear); Urine Urobilinogen Normal (Normal)
[2024-09-25 04:07] LABS: Dilute Prothrombin Time (dPT) 34.8 sec (0.0-47.6); Dilute Russell Viper Venom 38.2 sec (0.0-47.0); Interpretation Comment: (.); PTT-LA 37.4 sec (0.0-43.5); Thrombin Time 17.6 sec (0.0-23.0); dPT Confirm Ratio 1.28 Ratio (0.00-1.34)
== END | disposition home or self-care (01) ==
LOC: MTLAB 08:58
PROVIDERS: PCP Student in an Organized Health Care Education/Training Program; Referring Provider Internal Medicine Rheumatology; Visit Provider Internal Medicine Rheumatology
DX: M06.4 Inflammatory polyarthropathy (principal); R76.8 Other specified abnormal immunological findings in serum; M79.7 Fibromyalgia; R51.9 Headache, unspecified
CPT/HCPCS: 36415; 80053; 81002; 82570; 84156; 85025; 86706; 86803; 87340